=== PATIENT | female | born 1945 | race Caucasian/White ===

== ENCOUNTER 2018-02-18 10:00 | Observation (INO) | payer MEDICARE, BC ==
[2018-02-18] MEDS ORDERED: Morphine 4 MG/ML VIAL ONE (10:55)
[2018-02-18] MEDS ORDERED: Ketorolac Tromethamine 30 MG/ML VIAL ONE (10:56)
[2018-02-18 11:10] LABS: #Eosinphils 0.2 thou/uL (0.0-0.7); #Lymphocytes 0.8 thou/uL (1.20-3.40); #Monocytes 0.6 thou/uL (0.11-0.59); #Neutrophils 6.5 thou/uL (1.40-6.50); %Basophils 0.4 % (0.0-1.0); %Eosinophils 1.8 % (0.0-10.0); %Lymphocytes 10.3 % (21.0-51.0); %Monocytes 7.8 % (0.0-10.0); %Neutrophils 79.6 % (42.0-75.0); Hemoglobin 14.3 g/dL (12.0-16.0); Mean Corpuscular HGB CONC 32.9 g/dL (32.0-36.0); Mean Corpuscular Hemoglobin 33.5 pg (27.0-31.0); Mean Platelet Volume 6.5 fL (7.4-10.4); Platelet Count 313 thou/uL (130-400); RBC Distribution Width 11.7 % (11.5-14.5); Red Blood Cell (RBC) Count 4.28 mill/uL (4.20-5.40); White Blood Cell (WBC) Count 8.1 thou/uL (4.8-10.8)
[2018-02-18 11:27] LABS: ALT (SGPT) 10 U/L (8-55); AST (SGOT) 29 U/L (5-34); Alkaline Phosphatase 88 U/L (40-150); Anion Gap 11 mmol/L (10-20); BUN (Urea Nitrogen) 14 mg/dL (9.8-20.1); Bilirubin, Total 0.7 mg/dL (0.2-1.2); Calc. Creatinine Clearance 0 mL/min (70-130); Calcium 9.4 mg/dL (7.8-10.44); Carbon Dioxide 29 mmol/L (23-31); Chloride 99 mmol/L (98-107); Estimated GFR-MDRD 80; Globulin 2.6 g/dL (2.4-3.5); Glucose 99 mg/dL (83-110); Potassium 4.4 mmol/L (3.5-5.1); Protein, Total 6.6 g/dL (6.0-8.3); Sodium 135 mmol/L (136-145)
[2018-02-18] MEDS ORDERED: Dextrose 50% Abboject 50 ML SYRINGE SLOW IVP PRN (13:00)
[2018-02-18] MEDS ORDERED: Rib Fracture Protocol PO SCH (13:00)
[2018-02-18] MEDS ORDERED: Ondansetron ODT 4 MG TAB PO PRN (13:00)
[2018-02-18] MEDS ORDERED: Dextrose 5% in Water 1,000 ML IV PRN (13:00)
[2018-02-18] MEDS ORDERED: Ondansetron HCl/PF 4 MG/2 ML Vial IVP PRN (13:00)
[2018-02-18] MEDS ORDERED: ISOVUE-370 76%-LOCM 1 ML ONE (13:24)
--- NOTE | 2018-02-18 13:24 | CT ---
CHEST CT WITH CONTRAST ABDOMEN CT WITH CONTRAST PELVIC CT WITH CONTRAST LIMITED CT OF THE THORACIC AND LUMBAR SPINE: HISTORY: Fall. Right rib fractures. Worsening pain. TECHNIQUE: A chest, abdomen, and pelvic CT is performed with IV contrast. Reformatted images are submitted for interpretation. Limited CT of the thoracic and lumbar spine is performed with reformatted images. FINDINGS: CHEST CT: Coronary calcifications. No mediastinal mass, lymphadenopathy, or hematoma. Atherosclerosis of the aorta is noted. There is elongation of the descending thoracic aorta. No aneurysm, dissection, or p eriaortic fat stranding. Trachea and central bronchi are patent. Small right-sided pleural effusion. Atelectatic changes in both lower lobes are noted. No significant pleural effusion. ABDOMEN CT: A small amount of nonspecific perihepatic fluid. Appropriate enhancement of the liver. Spleen, panc reas, and adrenal glands have appropriate enhancement. Gallbladder is distended without evidence of cholecystitis. Mild dilatation of the intrahepatic bili sobeida system is noted. No CT evidence of choledocholithiasis. No gastrohepatic, retrocrural, or periportal lymphadenopathy. Symmetric enhancement of the kidneys. Bilaterally, no obstructive uropathy. No mesenteric mass, lymphadenopathy, free air, or free fluid. Limited evaluation of the alimentary canal due to the absence of oral contrast. No evidence of bowel obstruction. Bariatric surgical changes are noted. PELVIC CT: No mass, lymphadenopathy, free air, or free fluid. Uterus and adnexal structures are unremarkable. The urinary bladder is unremarkable. There are fractures involving the right 8th, 9th, 10th ribs. Left bony thorax is unremarkable. The bony pelvis is intact. Postsurgical changes in the lower lumbar spine and sacrum are noted. CT OF THE THORACIC AND LUMBAR SPINE: Vertebral body height is maintained. No acute fracture. Previous vertebroplasty change at T12. The re is anterolisthesis of L4 upon L5 and L1 upon S1. IMPRESSION: 1. Right rib fractures. 2. Small right-sided pneumothorax. 3. Small amount of perihepatic fluid without evidence of liver injury. 4. Distended gallbladder without evidence of cholecystitis. Prominence of the intra- and extrahepat ic biliary system without evidence of choledocholithiasis. Results of the study were discussed with Dr. Tucker 02/18/18 at 12:11 p.m. CODE CR POS: [facility]
[2018-02-18] MEDS ORDERED: Melatonin 3 MG TAB PO PRN (13:45)
[2018-02-18] MEDS ORDERED: Cyclobenzaprine 10 MG TAB PO PRN (15:00)
--- NOTE | 2018-02-18 15:08 | RAD ---
CHEST 1 VIEW: History Rib fractures. Pneumothorax. Pain. COMPARISON: 10/20/17, 02/17/18. FINDINGS: Right-sided rib fractures are noted. Small right-sided pneumothorax is noted. Chronic changes in th e left lung. Stable cardiac silhouette and elongation of the aorta. IMPRESSION: Posttraumatic change of the right hemithorax as described above. POS: [facility]
[2018-02-18] MEDS: Gabapentin 100 MG CAP PO SCH ×2 (15:10→20:44)
[2018-02-18] MEDS ORDERED: Ibuprofen 600 MG TAB PO SCH (15:30)
[2018-02-18] MEDS: Acetaminophen 500 MG TAB PO SCH ×2 (15:51→20:59)
[2018-02-18] MEDS: traMADol HCl 50 MG TAB PO SCH ×2 (15:52→20:59)
[2018-02-18 16:40] VITALS: BMI 22.8
[2018-02-18] MEDS ORDERED: Acetaminophen 500 MG TAB PO SCH (18:00)
[2018-02-18] MEDS ORDERED: traMADol HCl 50 MG TAB PO SCH (18:00)
--- NOTE | 2018-02-18 20:01 | HP ---
DATE OF ADMISSION: 02/18/2018 ATTENDING PHYSICIAN: Dr. Pedraza. TRAUMA ACTIVATION: Not applicable. HISTORY OF PRESENT ILLNESS: Lena Maria is a 72-year-old female who presented to [facility] 2 days status post fall. 2 nights ago the patient was attempting to stand after using the bathroom, her leg became caught in her pantleg and she fell striking her bathtub. She denies LOC or head trauma. The patient was evaluated in [facility] yesterday and diagnosed with rib fractures. She was discharged home at that time; however, the patient had increasing pain and presented to [facility] for further evaluation. A CT of the chest, abdomen, and pelvis was performed which demonstrated a small right pneumothorax and multiple right-sided rib fractures, as well as some fluid surrounding the liver but no definitive evidence of liver laceration. Trauma services was asked to admit for observation and pain control. Upon my evaluation, the patient had a chief complaint of right mid back and side pain. This is worsened with inspiration and movement, relieved with pain medication. ALLERGIES: None. HOME MEDICATIONS: Cymbalta 30 mg p.o. daily, Prilosec OTC, folic acid supplement, B12 supplement, multivitamin, Ambien 12.5 mg p.o. at bedtime, clonazepam 0.5 mg p.o. at bedtime. PAST MEDICAL HISTORY: Significant for indigestion, obesity status post gastric bypass and chronic back pain. PAST SURGICAL HISTORY: Significant for gastric bypass, back surgery and neck surgery, left wrist and left humerus surgery. SOCIAL HISTORY: The patient lives at home independently. She endorses occasional alcohol use defined is 1-2 drinks every other week. She is a previous tobacco user 50 years, half pack per day, but quit 1.5 years ago. Denies illicit drug use. REVIEW OF SYSTEMS: Negative except as indicated in the HPI. PHYSICAL EXAMINATION: VITAL SIGNS: Temperature on arrival 98.5, pulse 72, blood pressure 125/75, O2 sat 100% on 2 liters nasal cannula, respiratory rate of 16. GENERAL: Well-developed elderly female, sitting in bed, in no acute distress. HEAD: Normocephalic. She does have a chin contusion. EYES: Pupils are PERRL. Extraocular movements are intact. NECK: Supple. Trachea is midline. There is no midline tenderness to palpation. PULMONARY: No tenderness to palpation anteriorly. Normal work of breathing, symmetric rise. LUNGS: Clear to auscultation bilaterally. CARDIOVASCULAR: Regular rate and rhythm. GASTROINTESTINAL: Abdomen is soft, nontender, nondistended. Bowel sounds are positive. BACK: No midline tenderness, but she does have right mid back pain with palpation. MUSCULOSKELETAL: Bilateral upper extremities within normal limits. Bilateral lower extremities within normal limits. NEUROLOGIC: GCS of 15. No focal deficit noted. LABORATORY FINDINGS: WBC 8.1, hemoglobin 14.3, hematocrit 43.5, platelet count 313. Sodium 135, potassium 4.4, chloride 99, carbon dioxide 29, BUN 14, creatinine 0.72, glucose 99. AST and ALT within normal limits. RADIOLOGIC FINDINGS: CT of the chest, abdomen, and pelvis, right 8th through 10th rib fractures with a small right-sided pneumothorax evidence of a small amount of perihepatic fluid without obvious liver injury. Incidental finding of distended gallbladder, but no evidence of cholecystitis. Chest x-ray, small apical right-sided pneumothorax is noted with right-sided rib fractures. ASSESSMENT: 1. Status post mechanical fall. 2. Right 8th through 10th rib fractures. 3. Small right pneumothorax. 4. Acute traumatic pain. PLAN: Admit to trauma services for pain control and observation. Pain control with rib fracture protocol via p.o. pathway. Incentive spirometry and pulmonary toileting. Repeat chest x-ray in a.m. A.m. CBC. Plan for admission were discussed with the patient and daughter at bedside who vocalized understanding. All questions were answered at the time of this dictation. The patient was discussed with Dr. Pedraza, who agrees with my assessment and plan. [facility]ITAL[facility]
[2018-02-18] MEDS: Famotidine 20 MG TAB PO SCH (20:44)
[2018-02-18] MEDS: Ibuprofen 600 MG TAB PO SCH (20:59)
[2018-02-19] MEDS: Ibuprofen 600 MG TAB PO SCH ×2 (04:47→13:08)
[2018-02-19] MEDS: Acetaminophen 500 MG TAB PO SCH ×2 (04:47→10:28)
[2018-02-19] MEDS: traMADol HCl 50 MG TAB PO SCH ×2 (04:47→10:29)
[2018-02-19 06:02] LABS: #Eosinphils 0.1 thou/uL (0.0-0.7); #Lymphocytes 0.9 thou/uL (1.20-3.40); #Monocytes 0.5 thou/uL (0.11-0.59); #Neutrophils 2.5 thou/uL (1.40-6.50); %Eosinophils 3.6 % (0.0-10.0); %Lymphocytes 22.9 % (21.0-51.0); %Monocytes 11.5 % (0.0-10.0); Hemoglobin 11.9 g/dL (12.0-16.0); Mean Corpuscular HGB CONC 33.3 g/dL (32.0-36.0); Mean Corpuscular Hemoglobin 34.5 pg (27.0-31.0); Platelet Count 221 thou/uL (130-400); RBC Distribution Width 11.7 % (11.5-14.5); Red Blood Cell (RBC) Count 3.47 mill/uL (4.20-5.40); White Blood Cell (WBC) Count 4.1 thou/uL (4.8-10.8)
[2018-02-19] MEDS: Gabapentin 100 MG CAP PO SCH ×2 (09:12→13:08)
[2018-02-19] MEDS: Famotidine 20 MG TAB PO SCH (09:12)
--- NOTE | 2018-02-19 12:19 | RAD ---
PORTABLE AP CHEST XRAY: DATE: 02/19/18. HISTORY: Pneumothorax, rib fracture. COMPARISON: 02/18/18. FINDINGS: Postsurgical changes of the lower cervical spine as well as left humerus are again present. Right-sided rib fractures are again seen. No pneumothorax or pleural effusion is seen on this exam. There is atelectasis at the left lung base. Lungs are otherwise clear. Cardiac silhouette is magni fied by projection. Thoracic aorta is tortuous and ectatic but unchanged in appearance. Vertebropla sty changes are seen involving lower thoracic/upper lumbar vertebral bodies. Osteopenia is present. IMPRESSION: 1. Right-sided rib fractures are again present. A definite right-sided pneumothorax is not apprecia cody on this exam. 2. Atelectasis left lung base. POS: [facility]
[2018-02-19 13:07] VITALS: BP 113/72; TEMP 98.1
--- NOTE | 2018-02-20 00:08 | DIS ---
DATE OF ADMISSION: 02/18/2018 DATE OF DISCHARGE: 02/19/2018 ADMISSION DIAGNOSES: 1. Status post mechanical fall. 2. Right 8th through 10th rib fractures. 3. Small right pneumothorax. 4. Acute traumatic pain. DISCHARGE DIAGNOSES: 1. Status post mechanical fall. 2. Right 8th through 10th rib fractures. 3. Small right pneumothorax. 4. Acute traumatic pain. CONSULTANTS: None. PROCEDURES: None. HOSPITAL COURSE: Lena Maria is a 72-year-old female who presented to [facility] 2 days s tatus post mechanical fall in her bathroom. The patient was evaluated in the day prior to admission at an outside facility and found to have rib fractures for which she was prescribed pain medication; however, she had increasing pain and presented to [facility] for further evaluation. She was foun d to have multiple right-sided rib fractures with a small apical pneumothorax at which time, [facility] was asked to admit for observation and pain control. She was started on rib fracture protoco l via p.o. pathway and a repeat chest x-ray on the morning after admission showed improvement in the size of her pneumothorax. The patient was medically stable and cleared for discharge 02/19/2018. He r pain was controlled with p.o. analgesics. She was tolerating a general diet. She was ambulating w ell. DISCHARGE DISPOSITION: Home. DISCHARGE CONDITION: Good. PHYSICAL EXAMINATION: VITAL SIGNS: Temperature 98.1, pulse 74, respirations 16, O2 sat 96% on room air, blood pressure 113 /72. GENERAL: A well-developed elderly female in no acute distress, sitting in bed. PULMONARY: Normal work of breathing, symmetric rise. LUNGS: Clear to auscultation bilaterally. IS 1700 mL. CARDIOVASCULAR: Regular rate and rhythm. GI: Abdomen is soft, nontender, nondistended. MUSCULOSKELETAL: Moves all extremities x4. NEUROLOGIC: No focal deficit noted. DISCHARGE INSTRUCTIONS: Discharge instructions were provided to the patient and her family who vocal ized her understanding. She is to continue to use her incentive spirometer at home. She is encourag ed to maintain activity as tolerated. She has no dietary restrictions. She is return to the emergen cy room should she develop increasing shortness of breath, uncontrolled pain or dyspnea. DISCHARGE MEDICATIONS: The patient was discharged on [id number] Tylenol and ibuprofen with the addition of Ultram 50-100 mg q.6 hours p.r.n. for severe breakthrough pain, #40; Flexeril 5 mg 1 tab let p.o. q.8 hours p.r.n. for muscle spasm; gabapentin 100 mg t.i.d. She may resume her home medicat ions, but was advised to hold her Ambien given other sedating medications that we prescribed. FOLLOWUP APPOINTMENTS: The patient should follow up with her primary care provider as needed. She i s to follow up with Trauma Services in 2 weeks with a chest x-ray prior to her appointment. This is merely a summary of the patient's hospitalization for more in depth information, please see her medic al record in its entirety.
== END 2018-02-19 14:34 | disposition home or self-care (01) ==
LOC: ERS 10:00 → SURG A 12:21
PROVIDERS: ADMIT Specialist; ATTEND Specialist
DX: J98.11 Atelectasis (principal); Z79.899 Other long term (current) drug therapy
CPT/HCPCS: 71045 ×2; 71260; 74177; 80053; 85025 ×2; 94640 ×2; 96361; 96374; 96375; 97139; 99285; G0378; 36415; J1885; J2270; J7620

== ENCOUNTER 2018-03-07 13:32 | Outpatient (CLI) | payer MEDICARE, BC ==
--- NOTE | 2018-03-07 15:24 | RAD ---
PA AND LATERAL VIEWS CHEST: Date: 03/07/18 HISTORY: Pneumothorax, rib fractures. FINDINGS: Comparison made with exam of 02/19/18. Right-sided rib fractures are again seen. The heart size is normal and the aorta is tortuous. The joe gs are well expanded without lobar consolidation, pneumothoraces, or pleural effusions. There are pos top changes and metallic hardware in the lower cervical spine. IMPRESSION: 1. No definite evidence of pneumothorax. 2. Right-sided rib fractures. POS: [facility]
== END 2018-03-07 13:33 | disposition home or self-care (01) ==
LOC: RAD 13:32
PROVIDERS: ATTEND Physician Assistant
DX: S22.41XA Multiple fractures of ribs, right side, initial encounter for closed fracture (principal); S27.0XXA Traumatic pneumothorax, initial encounter
CPT/HCPCS: 71046

== ENCOUNTER 2018-10-26 06:40 | Outpatient (CLI) | payer MEDICARE, BC ==
--- NOTE | 2018-10-27 21:02 | EKG ---
Test Reason : Blood Pressure : / mmHG Vent. Rate : 059 BPM Atrial Rate : 058 BPM P-R Int : 148 ms QRS Dur : 090 ms QT Int : 434 ms P-R-T Axes : 052 -25 040 degrees QTc Int : 429 ms Sinus bradycardia Otherwise normal ECG When compared with ECG of 14-MAR-2015 11:33, Abberant conduction is no longer Present Confirmed by Vick RIVERA ([id number]) on 10/27/2018 9:02:35 PM Referred By: RYNE Confirmed By:Vick RIVERA
== END 2018-10-26 06:41 | disposition home or self-care (01) ==
LOC: LABBT 06:40
PROVIDERS: ATTEND Orthopaedic Surgery
DX: Z01.818 Encounter for other preprocedural examination (principal); M16.11 Unilateral primary osteoarthritis, right hip
CPT/HCPCS: 87081; 93005; 93010

== ENCOUNTER 2018-10-26 12:00 | Inpatient (IN) | payer MEDICARE, BC ==
[2018-10-26 12:52] VITALS: BMI 20.9
[2018-11-07] MEDS ORDERED: Midazolam HCl 2 mg/2 ml Vial ONE (06:21)
[2018-11-07] MEDS ORDERED: Fentanyl 100 MCG/2 ML VIAL ONE ×2 (06:21→07:13)
[2018-11-07] MEDS ORDERED: Lidocaine 1.5% w/Epi 1:200K 30 ML VIAL (Epid Use) ONE (06:48)
[2018-11-07] MEDS ORDERED: Sodium Chloride 0.9% 100 ML ONE (07:04)
[2018-11-07] MEDS ORDERED: Tranexamic Acid 1,000 MG/10 ML VIAL ONE (07:04)
[2018-11-07] MEDS ORDERED: CEFAZOLIN 2 GM/50 ML BAG ONE (07:04)
[2018-11-07] MEDS ORDERED: Lidocaine 2% Jelly 5 ML TUBE ONE (07:13)
[2018-11-07] MEDS ORDERED: Phenylephrine HCL 10 MG/ML VIAL ONE (07:13)
[2018-11-07] MEDS ORDERED: Ropivacaine 0.2% HCl/PF 20 ML ONE (07:13)
[2018-11-07] MEDS ORDERED: Ondansetron HCl/PF 4 MG/2 ML Vial IVP PRN (09:06)
[2018-11-07] MEDS ORDERED: Promethazine HCl 25 MG/ML VIAL SLOW IVP PRN (09:06)
[2018-11-07] MEDS ORDERED: Promethazine HCl 25 MG/ML VIAL IM PRN ×3 (09:06→10:52)
[2018-11-07] MEDS ORDERED: Promethazine HCl 25 MG SUPP PR PRN (09:15)
[2018-11-07] MEDS ORDERED: diphenhydrAMINE 50 MG/ML VIAL IVP PRN (09:15)
[2018-11-07] MEDS ORDERED: Ondansetron PF 4 MG/2 ML Vial IVP PRN ×2 (09:15→10:52)
[2018-11-07] MEDS ORDERED: Naloxone HCl 0.4 mg/ml Vial IV PRN (09:15)
[2018-11-07] MEDS ORDERED: diphenhydrAMINE 50 MG/ML VIAL IM PRN (09:15)
[2018-11-07] MEDS ORDERED: Hydrocerin (Eucerin) Cream 120 gm Jar TOP PRN (09:15)
[2018-11-07] MEDS ORDERED: traMADol HCl 50 MG TAB PO PRN ×3 (09:15→10:52)
[2018-11-07] MEDS ORDERED: Naloxone HCl 0.4 mg/ml Vial IVP PRN (09:15)
[2018-11-07] MEDS ORDERED: Bupivacaine 0.25% 10 ML VIAL EPIDURAL PRN (09:15)
[2018-11-07] MEDS ORDERED: diphenhydrAMINE 25 MG CAP PO PRN ×2 (09:15→10:52)
[2018-11-07] MEDS ORDERED: HYDROcodone/Acetaminophen 5/325 mg Tablet PO PRN ×2 (09:15)
--- NOTE | 2018-11-07 10:20 | HP ---
CHIEF COMPLAINT: Right hip pain. HISTORY OF PRESENT ILLNESS: Ms. Maria is a pleasant 73-year-old female, presenting with right hip pain for several years, severe over the last 2 or 3 months, increased walking for long periods, sharp pain, it can be size 5 to 10 of 10. The patient's pain is controlled with Tylenol. History of lumbar and cervical fusion, bariatric surgery, occasionally numbness in her right foot. No recent cardiac complications. She has been cleared by Dr. Mares, low risk. Denies previous surgeries to her hip. The patient lives by herself at home alone. PAST MEDICAL HISTORY: Osteoporosis; obstructive sleep apnea, on CPAP; depression, anxiety; insomnia; heavy alcohol in the past; thrombotic CVA; diastolic dysfunction; chronic low back pain, history of multiple surgeries; gastric bypass; and constipation. PAST SURGICAL HISTORY: Heart catheterization, low back fusion, cervical fusion, left wrist fracture, gastric bypass, humerus fracture repair. MEDICATIONS: 1. Hydrocortisone. 2. Prilosec. 3. Ergocalciferol. 4. Sennosides. 5. Vitamin B12. 6. Cymbalta. 7. Hydroxyzine. ALLERGIES: TO FOSAMAX, DICLOFENAC. SOCIAL HISTORY: The patient is a former smoker. The patient has history of heavy drinking. The patient is living alone currently at home. . 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 PHYSICAL EXAMINATION: GENERAL: Alert and oriented female, in no acute distress. Resting comfortably in bed. EXTREMITIES: The patient has 1 to 1.5 cm shortening on the right side. She has groin pain with internal rotation. Gait is antalgic. The patient has sensory and motor intact distally. The patient is able to do a straight leg, which is negative. IMAGING DATA: Right hip films show transverse narrowing with marginal osteophytes consistent with right hip osteoarthritis. ASSESSMENT: 1. Right hip osteoarthritis. 2. History of lumbar fusion. 3. History of low back pain. 4. History of gastric sleeve PLAN: I discussed with the patient the risks and benefits of a right hip arthroplasty. The patient understands that she has increased risk of complications for bariatric surgery. I discussed the risks and benefits of the surgery to include pain, scar, bleeding, infection, damage to vital structures, decreased range of motion and strength, nonunion, malunion, re-fracture, risk of blood clots, complication, anesthesia, complete loss of life or limb. The patient understands the risks and benefits and elects to proceed. We will proceed today with a right total hip arthroplasty. The patient will receive vancomycin and Ancef preoperatively as well as TXA per the [facility] protocol. She will be followed in-house. Job ID: [id number] MTDD
[2018-11-07] MEDS ORDERED: Acetaminophen 1,000 MG in Premix Bag 1 BAG IVPB PRN (10:22)
[2018-11-07 10:38] LABS: RBC/HPF 21-50 HPF (0-3); WBC/HPF 0-3 HPF (0-3)
[2018-11-07 10:39] LABS: Bacteria/HPF Rare-Few HPF (None Seen)
--- NOTE | 2018-11-07 10:50 | RAD ---
AP PELVIS TWO VIEWS RIGHT HIP: Date: 11-07-18 History: Post-operative total hip replacement. Comparison: 11-14-13 FINDINGS: There have been interval post-surgical changes related to placement of a right total hip prosthesis. No hardware complication is appreciated. No fracture or dislocation is identified. Post-surgical guidry ges are again seen related to posterior fusion at the lumbosacral junction with unilateral right side d pedicular screws transfixed by posterior lasha. Intradiscal prosthesis also overlies this region. There is mild bilateral sacroiliac joint osteoarthritis with degenerative change of the pubic symphys is. There is mild left hip joint space narrowing. No other osseous abnormality. Phleboliths overly th e pelvis. Vascular calcifications seen in the visualized infrarenal abdominal aorta involving the kar ac arteries. IMPRESSION: Post-surgical changes related to right total hip prosthesis with subcutaneous edema seen laterally an d about the right hip, related to recent post-surgical change. POS: [facility]
[2018-11-07] MEDS ORDERED: Acetaminophen 325 MG TAB PO PRN (10:52)
[2018-11-07] MEDS ORDERED: Ketorolac Tromethamine 30 MG/ML VIAL IVP PRN (10:52)
[2018-11-07] MEDS ORDERED: Fentanyl 100 MCG/2 ML VIAL SLOW IVP PRN ×2 (10:52)
[2018-11-07] MEDS ORDERED: Zolpidem Tartrate 5 MG TAB PO PRN (10:52)
[2018-11-07] MEDS ORDERED: CEFAZOLIN/Water 2 GM/20 ML SYRINGE SLOW IVP SCH (10:52)
[2018-11-07] MEDS ORDERED: Vancomycin HCl 1 GM in Premix Bag 1 BAG IVPB SCH ×2 (10:52→20:00)
[2018-11-07 11:09] LABS: Crystals/HPF 4+ ACID URATES HPF (Negative); Hyaline Casts/LPF 0-3 HYALINE CAST LPF (0-3 Hyaline)
--- NOTE | 2018-11-07 13:49 | PDOC.PN ---
- Subjective Encounter Start Date: 11/07/18 Encounter Start Time: 13:47 Pt seen for management of medical comorbidities including OSAS. Denies chest pain, shortness of breath, fevers or chills. - Objective MAR Reviewed: Yes Vital Signs & Weight: Vital Signs (12 hours) Temp Pulse Resp BP Pulse Ox 11/07/18 13:26 100 11/07/18 11:45 98.8 F 64 18 112/74 100 Weight Weight 142 lb I&O: 11/06/18 11/07/18 11/08/18 06:59 06:59 06:59 Intake Total 750 Output Total 250 Balance 500 Additional Labs: Labs reviewed by me Phys Exam - Physical Examination Constitutional: NAD HEENT: moist MMs Neck: supple Respiratory: clear to auscultation bilateral Cardiovascular: RRR Gastrointestinal: soft Neurological: moves all 4 limbs Psychiatric: normal affect Dx/Plan (1) KEELY (obstructive sleep apnea) Code(s): G47.33 - OBSTRUCTIVE SLEEP APNEA (ADULT) (PEDIATRIC) Status: Chronic Comment: to use CPAP while asleep (2) Mild depression Code(s): F32.0 - MAJOR DEPRESSIVE DISORDER, SINGLE EPISODE, MILD Status: Chronic Comment: stable (3) Osteoporosis Code(s): M81.0 - AGE-RELATED OSTEOPOROSIS W/O CURRENT PATHOLOGICAL FRACTURE Status: Chronic Comment: stable (4) H/O: CVA (cerebrovascular accident) Code(s): Z86.73 - PRSNL HX OF TIA (TIA), AND CEREB INFRC W/O RESID DEFICITS Status: Chronic Comment: advised pt to followup with PCP and discuss need for aspirin and statin. - Plan * . Review of Systems - Review of Systems Cardiovascular: negative: chest pain, palpitations, orthopnea, paroxysmal nocturnal dyspnea, edema, light headedness Gastrointestinal: negative: Nausea, Vomiting, Abdominal Pain, Diarrhea, Constipation, Melena, Hematochezia - Medications/Allergies Allergies/Adverse Reactions: Allergies Allergy/AdvReac Type Severity Reaction Status Date / Time alendronate sodium Allergy Verified 11/07/18 10:58 [From Fosamax] diclofenac Allergy Verified 11/07/18 10:58 Medications: Current Medications Acetaminophen (Tylenol) 650 mg PO Q4H PRN PRN Reason: Headache/Fever or Pain Hydrocodone Bitart/Acetaminophen ([place] 5/325) 1 tab PO Q4H PRN PRN Reason: Mild Pain 0-3 Hydrocodone Bitart/Acetaminophen ([place] 5/325) 2 tab PO Q4H PRN PRN Reason: For Moderate Pain 4-6 Aspirin (Ecotrin) 81 mg PO BID [facility] Bupivacaine HCl (Marcaine) 5 ml EPIDURAL ONE PRN PRN Reason: UNCONTROLLED PAIN Stop: 11/08/18 09:16 Diphenhydramine HCl (Benadryl) 25 mg PO Q3H PRN PRN Reason: Itching Diphenhydramine HCl (Benadryl) 25 mg IM Q3H PRN PRN Reason: Itching Diphenhydramine HCl (Benadryl) 25 mg IVP Q3H PRN PRN Reason: Itching Emollient Cream (Hydrocerin Cream) 0 gm TOP PRN PRN PRN Reason: Itching Fentanyl (Sublimaze) 50 mcg SLOW IVP Q30MIN PRN PRN Reason: Moderate Pain (4-6) Fentanyl (Sublimaze) 100 mcg SLOW IVP Q1H PRN PRN Reason: Severe Pain (7-10) Ferrous Gluconate (Fergon) 324 mg PO BID [facility] Fentanyl Citrate (Fentanyl/Bupivacaine) 100 mls @ 6 mls/hr EPIDURAL INF EL Acetaminophen 1,000 mg/ Device 100 mls @ 400 mls/hr IVPB Q6H PRN PRN Reason: Fever>101/MILD Pain Stop: 11/08/18 10:23 Dextrose/Sodium Chloride (D5 1/2 Ns) 1,000 mls @ 100 mls/hr IV .Q10H EL Cefazolin Sodium/Dextrose 2 gm (/ Device) 50 mls @ 50 mls/hr IVPB Q8H EL Stop: 11/07/18 23:59 Iron/Minerals/Multivitamins (Theragran M) 1 tab PO DAILY [facility] Ketorolac Tromethamine (Toradol) 15 mg IVP Q8HR PRN PRN Reason: Pain Stop: 11/09/18 10:53 Miscellaneous Information (Communication Order-Pharmacy) 1 each FS ASDIR EL Naloxone HCl (Narcan) 0.2 mg IV Q5MIN PRN PRN Reason: RR <=8 OR OBTUNDED/UNAROUSABLE Naloxone HCl (Narcan) 0.1 mg IVP Q15MIN PRN PRN Reason: URINARY RETENTION Ondansetron HCl (Zofran) 4 mg IVP Q6H PRN PRN Reason: Nausea/Vomiting Promethazine HCl (Phenergan) 12.5 mg IM Q4H PRN PRN Reason: Nausea Promethazine HCl (Phenergan Suppository) 25 mg DC Q4H PRN PRN Reason: Nausea/Vomiting Senna/Docusate Sodium (Senokot S) 2 tab PO BID EL Sodium Chloride (Flush - Normal Saline) 10 ml IVF PRN PRN PRN Reason: Saline Flush Tramadol HCl (Ultram) 50 mg PO Q6H PRN PRN Reason: Mild Pain 1-3 Tramadol HCl (Ultram) 100 mg PO Q6H PRN PRN Reason: Moderate Pain 4-6 Zolpidem Tartrate (Ambien) 5 mg PO HSPRN PRN PRN Reason: Insomnia
[2018-11-07] MEDS: Dextrose 5 %-0.45 % NaCl 1,000 ML IV SCH ×2 (14:38→20:22)
[2018-11-07] MEDS: CEFAZOLIN 2 GM/50 ML-DEXTROSE 2 GM in Premix Bag 1 BAG IVPB SCH ×2 (15:51→22:13)
[2018-11-07] MEDS ORDERED: Rocuronium Bromide 10 MG/ML (10ML VIAL) ONE (16:25)
[2018-11-07] MEDS ORDERED: PHENYLEPHRINE-NS 100 MCG/ML 10 ML SYRINGE ONE (16:25)
[2018-11-07] MEDS ORDERED: Glycopyrrolate 0.2 MG/ML 5 ML SYRINGE ONE (16:25)
[2018-11-07] MEDS ORDERED: Dexamethasone 20 MG/5 ML VIAL ONE (16:25)
[2018-11-07] MEDS ORDERED: PROPOFOL 200 MG/20 ML VIAL ONE (16:25)
[2018-11-07] MEDS ORDERED: Ondansetron PF 4 MG/2 ML Vial ONE (16:25)
[2018-11-07] MEDS ORDERED: ePHEDrine/0.9% NaCl/PF SYRINGE 50 mg/10 ml ONE (16:25)
[2018-11-07] MEDS: Aspirin 81 mg Enteric Coated Tablet PO SCH (20:22)
[2018-11-07] MEDS: Ferrous Gluconate 324 MG TAB PO SCH (20:22)
[2018-11-07] MEDS: Zolpidem Tartrate 5 MG TAB PO PRN (22:14)
[2018-11-08] MEDS: Fentanyl/Bupivacaine 100 ML EPIDURAL SCH ×2 (00:36→16:44)
[2018-11-08] MEDS: HYDROcodone/Acetaminophen 5/325 mg Tablet PO PRN ×4 (00:55→14:17)
--- NOTE | 2018-11-08 01:04 | OP ---
DATE OF PROCEDURE: 11/07/2018 PREOPERATIVE DIAGNOSIS: Right hip osteoarthritis. POSTOPERATIVE DIAGNOSIS: Right hip osteoarthritis. PROCEDURE PERFORMED: Right total hip arthroplasty. HEAD OPERATOR SULFIDE: Fabiano Stallings PA-C ANESTHESIOLOGIST: Dr. Madrigal. ANESTHESIA: The patient received a general endotracheal intubation with an epidural. ESTIMATED BLOOD LOSS: 150 mL. TOURNIQUET TIME: None. IMPLANTS: [place]ington Accolade 36-5 femoral head, Accolade 132, size 6 Accolade TMC stem, trident 10 mm, poly 36 mm, X3 10-degree poly insert and a Tritanium 58 mm shell. ANTIBIOTICS: Ancef 2 g, vancomycin 1 g, TXA 1 g. COMPLICATIONS: None. HISTORY OF PRESENT ILLNESS: Ms. Maria is a 73-year-old female with right hip pain, presents after increasing pain in her right hip. I discussed with the patient that she has right hip osteoarthritis. I discussed the risks and benefits of the surgery to include pain, scar, bleeding, infection, damage to vital structures, decreased range of motion or strength, nonunion, fracture above or below the stem, need for further surgeries, and loss of life or limb. The patient understood the risks and benefits. She would like to proceed. DESCRIPTION OF PROCEDURE: A time-out was performed designating the patient's right lower extremity as the operative site, based on site, consent, and markings. After time-out was performed, the patient's right lower extremity was prepped and draped in sterile fashion in lateral position with bony prominences well padded. The patient had a lateral incision down through skin to the IT band down. We found the gluteus medius and minimus, which were taken off in lateral approach to expose the capsule. The capsule was T'd and excised and exposed the acetabulum, reamed sequentially up to a 57 plate to 58 Tritanium shell with a 36 mm, 10-degree poly insert F poly. After removing this and placing the broach, we broached up to size 6, trialed with -5. She was tight just as her IT band was tethered around which made a small rent in the IT band to help with exposure that made her loose. We had good overall lengths and alignments based on leg lengths as well as reduction, she had no shuck, alignment. We then elected to complete with this implant. We removed all ours trial, washed the reminder of the hip. We placed the size 6, reduced the hip, had good overall reduction. No signs of impingement. We then closed the gluteus minimus with sutures, passing through the bone across the gluteus medius with sewing the tendon back to itself as well as closed some of the rectus that had been peeled off, closing the entire and then closed the IT band with #2 Vicryl, #2 Quill, 0 Quill, 2-0 Quill and glue. The patient will be admitted to the hospital. She may need rehab postoperatively. Follow in-house. Job ID: [id number]
[2018-11-08] MEDS: Dextrose 5 %-0.45 % NaCl 1,000 ML IV SCH ×2 (05:22→14:19)
[2018-11-08 06:19] LABS: Hemoglobin 10.9 g/dL (12.0-16.0); Mean Corpuscular HGB CONC 32.5 g/dL (32.0-36.0); Mean Platelet Volume 6.4 fL (7.4-10.4); Platelet Count 254 thou/uL (130-400); RBC Distribution Width 11.1 % (11.5-14.5); Red Blood Cell (RBC) Count 3.31 mill/uL (4.20-5.40); White Blood Cell (WBC) Count 6.8 thou/uL (4.8-10.8)
[2018-11-08] MEDS: Multivitamin W/ Minerals 1 TAB PO SCH (09:30)
[2018-11-08] MEDS: Aspirin 81 mg Enteric Coated Tablet PO SCH ×2 (09:30→21:07)
[2018-11-08] MEDS: Ferrous Gluconate 324 MG TAB PO SCH ×2 (09:30→21:07)
[2018-11-08] MEDS: Senokot S 8.6-50 MG TAB PO SCH ×2 (14:17→21:07)
--- NOTE | 2018-11-08 19:01 | PDOC.PN ---
- Subjective Encounter Start Date: 11/08/18 Encounter Start Time: 09:40 Pt seen for followup re: OSAS. No complaints today. - Objective MAR Reviewed: Yes Vital Signs & Weight: Vital Signs (12 hours) Temp Pulse Resp BP Pulse Ox 11/08/18 16:02 98.2 F 77 18 94/56 L 97 11/08/18 07:14 97.8 F 98 20 150/73 H 95 Weight Admit Weight 142 lb Weight 142 lb I&O: 11/07/18 11/08/18 11/09/18 06:59 06:59 06:59 Intake Total 750 2300 Output Total 450 1200 Balance 300 1100 Result Diagrams: 11/08/18 05:38 Additional Labs: Labs reviewed by me Phys Exam - Physical Examination Constitutional: NAD HEENT: moist MMs Neck: supple Respiratory: clear to auscultation bilateral Cardiovascular: RRR Gastrointestinal: soft s/p R hip surgery Neurological: moves all 4 limbs Dx/Plan (1) KEELY (obstructive sleep apnea) Code(s): G47.33 - OBSTRUCTIVE SLEEP APNEA (ADULT) (PEDIATRIC) Status: Chronic Comment: stable, using CPAP while asleep (2) Mild depression Code(s): F32.0 - MAJOR DEPRESSIVE DISORDER, SINGLE EPISODE, MILD Status: Chronic Comment: stable (3) Osteoporosis Code(s): M81.0 - AGE-RELATED OSTEOPOROSIS W/O CURRENT PATHOLOGICAL FRACTURE Status: Chronic Comment: stable (4) H/O: CVA (cerebrovascular accident) Code(s): Z86.73 - PRSNL HX OF TIA (TIA), AND CEREB INFRC W/O RESID DEFICITS Status: Chronic Comment: pt will benefit from aspirin and statin. - Plan * . Review of Systems - Review of Systems Constitutional: negative: fever, chills, sweats, weakness, malaise Gastrointestinal: negative: Nausea, Vomiting, Abdominal Pain, Diarrhea, Constipation, Melena, Hematochezia - Medications/Allergies Allergies/Adverse Reactions: Allergies Allergy/AdvReac Type Severity Reaction Status Date / Time alendronate sodium Allergy Verified 11/07/18 10:58 [From Fosamax] diclofenac Allergy Verified 11/07/18 10:58 Medications: Current Medications Acetaminophen (Tylenol) 650 mg PO Q4H PRN PRN Reason: Headache/Fever or Pain Hydrocodone Bitart/Acetaminophen ([place] 5/325) 1 tab PO Q4H PRN PRN Reason: Mild Pain 0-3 Last Admin: 11/08/18 06:07 Dose: 1 tab Hydrocodone Bitart/Acetaminophen ([place] 5/325) 2 tab PO Q4H PRN PRN Reason: For Moderate Pain 4-6 Last Admin: 11/08/18 14:17 Dose: 2 tab Aspirin (Ecotrin) 81 mg PO BID [facility] Last Admin: 11/08/18 09:30 Dose: 81 mg Diphenhydramine HCl (Benadryl) 25 mg PO Q3H PRN PRN Reason: Itching Diphenhydramine HCl (Benadryl) 25 mg IM Q3H PRN PRN Reason: Itching Diphenhydramine HCl (Benadryl) 25 mg IVP Q3H PRN PRN Reason: Itching Emollient Cream (Hydrocerin Cream) 0 gm TOP PRN PRN PRN Reason: Itching Fentanyl (Sublimaze) 50 mcg SLOW IVP Q30MIN PRN PRN Reason: Moderate Pain (4-6) Fentanyl (Sublimaze) 100 mcg SLOW IVP Q1H PRN PRN Reason: Severe Pain (7-10) Ferrous Gluconate (Fergon) 324 mg PO BID [facility] Last Admin: 11/08/18 09:30 Dose: 324 mg Fentanyl Citrate (Fentanyl/Bupivacaine) 100 mls @ 6 mls/hr EPIDURAL INF [facility] Last Admin: 11/08/18 16:44 Dose: 100 mls Dextrose/Sodium Chloride (D5 1/2 Ns) 1,000 mls @ 100 mls/hr IV .Q10H [facility] Last Admin: 11/08/18 14:19 Dose: Not Given Influenza Virus Vacc Triv Types A&B (Fluzone High-Dose 2017- Syr) 0.5 ml IM .ONCE ONE Stop: 11/08/18 21:01 Iron/Minerals/Multivitamins (Theragran M) 1 tab PO DAILY [facility] Last Admin: 11/08/18 09:30 Dose: 1 tab Ketorolac Tromethamine (Toradol) 15 mg IVP Q8HR PRN PRN Reason: Pain Stop: 11/09/18 10:53 Miscellaneous Information (Communication Order-Pharmacy) 1 each FS ASDIR [facility] Naloxone HCl (Narcan) 0.2 mg IV Q5MIN PRN PRN Reason: RR <=8 OR OBTUNDED/UNAROUSABLE Naloxone HCl (Narcan) 0.1 mg IVP Q15MIN PRN PRN Reason: URINARY RETENTION Ondansetron HCl (Zofran) 4 mg IVP Q6H PRN PRN Reason: Nausea/Vomiting Last Admin: 11/08/18 06:29 Dose: 4 mg Pneumococcal 13-Valent Conj Vacc (Prevnar) 0.5 ml IM .ONCE ONE Stop: 11/08/18 21:01 Promethazine HCl (Phenergan) 12.5 mg IM Q4H PRN PRN Reason: Nausea Promethazine HCl (Phenergan Suppository) 25 mg FL Q4H PRN PRN Reason: Nausea/Vomiting Senna/Docusate Sodium (Senokot S) 2 tab PO BID [facility] Last Admin: 11/08/18 14:17 Dose: 2 tab Sodium Chloride (Flush - Normal Saline) 10 ml IVF PRN PRN PRN Reason: Saline Flush Tramadol HCl (Ultram) 50 mg PO Q6H PRN PRN Reason: Mild Pain 1-3 Tramadol HCl (Ultram) 100 mg PO Q6H PRN PRN Reason: Moderate Pain 4-6 Zolpidem Tartrate (Ambien) 5 mg PO HSPRN PRN PRN Reason: Insomnia Last Admin: 11/07/18 22:14 Dose: 5 mg
[2018-11-08] MEDS ORDERED: Prevnar 13-Val Conj/PF 0.5 ML SYRINGE IM ONE (21:00)
[2018-11-08] MEDS: Zolpidem Tartrate 5 MG TAB PO PRN (21:10)
[2018-11-09] MEDS: Dextrose 5 %-0.45 % NaCl 1,000 ML IV SCH ×2 (03:58→11:12)
[2018-11-09 04:23] VITALS: TEMP 98.8
[2018-11-09] MEDS: HYDROcodone/Acetaminophen 5/325 mg Tablet PO PRN ×3 (06:19→16:12)
[2018-11-09 06:52] LABS: Hemoglobin 11.9 g/dL (12.0-16.0); Mean Corpuscular HGB CONC 31.7 g/dL (32.0-36.0); Mean Corpuscular Hemoglobin 33.2 pg (27.0-31.0); Mean Platelet Volume 6.7 fL (7.4-10.4); Platelet Count 245 thou/uL (130-400); RBC Distribution Width 11.2 % (11.5-14.5); Red Blood Cell (RBC) Count 3.59 mill/uL (4.20-5.40); White Blood Cell (WBC) Count 8.1 thou/uL (4.8-10.8)
[2018-11-09] MEDS: Senokot S 8.6-50 MG TAB PO SCH (09:32)
[2018-11-09] MEDS: Multivitamin W/ Minerals 1 TAB PO SCH (09:32)
[2018-11-09] MEDS: Ferrous Gluconate 324 MG TAB PO SCH (09:32)
[2018-11-09] MEDS: Aspirin 81 mg Enteric Coated Tablet PO SCH (09:32)
[2018-11-09] MEDS ORDERED: HYDROcodone/Acetaminophen 10/325 mg Tablet PO PRN ×2 (10:23)
[2018-11-09 11:40] VITALS: BP 108/54
--- NOTE | 2018-11-10 13:10 | DIS ---
DATE OF ADMISSION: 11/07/2018 DATE OF DISCHARGE: 11/09/2018 PREOPERATIVE DIAGNOSIS: Right hip osteoarthritis/degenerative joint disease. POSTOPERATIVE DIAGNOSIS: Right hip osteoarthritis/degenerative joint disease. PROCEDURE PERFORMED: The patient underwent a right total hip replacement. HOSPITAL COURSE: Hospital stay was unremarkable. The patient was admitted to [address], where she worked with staff, Physical Therapy, Occupational Therapy, and progressed quite well. By postop day #2, she was ready to discharge home. DISCHARGE CONDITION: Good/stable. DISPOSITION: Home with family. FOLLOWUP: Follow up would be in 2 to 4 weeks, sooner if there are problems or concerns. DISCHARGE MEDICATIONS: Given with the usage instructions. Job ID: [id number]
== END 2018-11-09 16:30 | disposition home or self-care (01) | DRG 470 ==
LOC: SURG A 11-07 06:03 → SJJU 11-07 10:39
PROVIDERS: ADMIT Orthopaedic Surgery; ATTEND Orthopaedic Surgery
PROC: 0SR90JA Replacement of Right Hip Joint with Synthetic Substitute, Uncemented, Open Approach (ICD-10-PCS; principal; 2018-11-07)
DX: M16.11 Unilateral primary osteoarthritis, right hip (principal); M81.0 Age-related osteoporosis without current pathological fracture; G47.33 Obstructive sleep apnea (adult) (pediatric); Z98.84 Bariatric surgery status; Z98.1 Arthrodesis status; F41.8 Other specified anxiety disorders; Z86.73 Personal history of transient ischemic attack (TIA), and cerebral infarction without residual deficits; Z87.891 Personal history of nicotine dependence
CPT/HCPCS: 36415; 81015; 85027; 90471; 90662; 90670; C1776; G0008; G0009; J1100; J2250; J2370; J2405; J2704; J2795; J3010; J3370; J7050

== ENCOUNTER 2018-11-01 12:35 | Outpatient (CLI) | payer MEDICARE, BC ==
[2018-11-01 13:38] LABS: Mean Corpuscular HGB CONC 32.1 g/dL (32.0-36.0); Mean Corpuscular Hemoglobin 32.3 pg (27.0-31.0); Mean Platelet Volume 6.6 fL (7.4-10.4); Platelet Count 366 thou/uL (130-400); RBC Distribution Width 11.1 % (11.5-14.5); Red Blood Cell (RBC) Count 4.33 mill/uL (4.20-5.40); White Blood Cell (WBC) Count 5.1 thou/uL (4.8-10.8)
[2018-11-01 13:39] LABS: Bilirubin Small (Negative); Blood, Urine Trace (Negative); Clarity CLEAR (Clear); Glucose, Urine (Dipstick) Negative (Negative); Leukocyte Trace (Negative); Nitrite Negative (Negative); Protein, Urine (Dipstick) Trace mg/dL (Neg-Trace); Specific Gravity, Urine 1.022 (1.002-1.036)
[2018-11-01 13:41] LABS: Bacteria/HPF None Seen HPF (None Seen); Hyaline Casts/LPF 7-10 HYALINE CAST LPF (0-3 Hyaline); Pathc Cast-AUWi Flag 1.45 (0-2.49)
[2018-11-01 13:42] LABS: INR-International Normal Ratio 1.2
[2018-11-01 14:01] LABS: Anion Gap 13 mmol/L (10-20); BUN (Urea Nitrogen) 13 mg/dL (9.8-20.1); Calc. Creatinine Clearance 0 mL/min (70-130); Carbon Dioxide 25 mmol/L (23-31); Chloride 105 mmol/L (98-107); Estimated GFR-MDRD 89; Glucose 90 mg/dL (83-110); Potassium 4.3 mmol/L (3.5-5.1); Sodium 139 mmol/L (136-145)
== END 2018-11-01 12:36 | disposition home or self-care (01) ==
LOC: LABBT 12:35
PROVIDERS: ATTEND Orthopaedic Surgery
DX: Z01.812 Encounter for preprocedural laboratory examination (principal); M16.11 Unilateral primary osteoarthritis, right hip
CPT/HCPCS: 80048; 81001; 85027; 85610; 86850; 86900; 86901

== ENCOUNTER 2019-05-15 15:12 | Outpatient (CLI) | payer MEDICARE, BC ==
--- NOTE | 2019-05-15 17:31 | RAD ---
LUMBAR SPINE 3 VIEWS: Date: 05/15/19 Lateral views obtained with neutral, flexion, and extension. INDICATION: Low back pain. Prior surgery. FINDINGS: Pedicle screws transfix L5 and S1. Interbody implant at this level. Partial fusion at L5-S1. Mild anterolisthesis at L4-5 with loss of L4-5 disc space. The vertebra maintain height. There is vertebroplasty change noted at the T12 vertebra with compressi on deformity at this vertebra. Lumbar vertebra maintain normal height. Facet hypertrophy is prominent . Mild osteophytes from the lumbar vertebra. Prominent aortic calcification. The listhesis at L4-5 ap pears to exacerbate with flexion and corrects with extension. IMPRESSION: Postoperative degenerative changes as described. POS: AISLINN
== END 2019-05-15 15:13 | disposition home or self-care (01) ==
LOC: TBSIIMAG 15:12
PROVIDERS: ATTEND Neurological Surgery
DX: M54.5 Low back pain (principal); M47.816 Spondylosis without myelopathy or radiculopathy, lumbar region; Z98.890 Other specified postprocedural states
CPT/HCPCS: 72100

== ENCOUNTER 2019-06-12 09:39 | Outpatient (CLI) | payer MEDICARE, BC ==
--- NOTE | 2019-06-12 10:08 | CT ---
CT LUMBAR SPINE: DATE: 06/12/2019. COMPARISON: CT of the chest, abdomen, and pelvis on 02/18/2018. HISTORY: Low back pain. TECHNIQUE: Axial CT imaging is obtained at 3 mm intervals through the lumbar spine with coronal and sagittal ref ormatted imaging. FINDINGS: Evaluation for central canal and/or neural foraminal stenosis is limited on routine CT. There is mult ifocal atherosclerotic calcification of the abdominal aorta and its branches, including the arterial structures of the pelvis. No acute retroperitoneal abnormality is seen. Degenerative changes noted involving bilateral sacroiliac joints. There is a right-sided L5 and right-sided S1 pedicle screw with an associated vertically oriented int erlocking lasha. There is mild anterolisthesis at L4-5 measuring approximately 4 mm and at L5-S1 measuring approximate ly 4 mm, stable when compared to the prior exam. There is a stable T12 fracture status post kyphoplasty. There is mild superior endplate irregularity suggesting prior fractures of L2, L3, and L4, stable. T12-L1: There is a focal hyperdensity within the region of the neural foramen on the left measuring 1 .2 cm with associated left-sided neural foraminal stenosis. This could be on the basis of a partially calcified disc extrusion. Further assessment with MRI advised with and without contrast. Th is likely causes significant left neural foraminal stenosis. No osseous cause of significant central canal or right neural foraminal stenosis. L1-2: Mild bilateral facet hypertrophy and anterior osteophyte formation with no osseous cause of sig nificant central canal or neural foraminal stenosis. L2-3: Mild bilateral facet hypertrophy and hypertrophy of the ligamentum flavum. Mild disc bulge. No osseous cause of significant central canal or neural foraminal stenosis. L3-4: Bilateral facet hypertrophy and hypertrophy of the ligamentum flavum. No osseous cause of signi ficant central canal or neural foraminal stenosis. L4-5: Bilateral facet hypertrophy with disc space narrowing and anterior osteophyte formation. Modera te left and mild right neural foraminal stenosis suspected. No osseous cause of significant central canal stenosis. L5-S1: Bilateral facet hypertrophy. Mild/moderate right neural foraminal stenosis. No central canal o r left neural foraminal stenosis on the basis of osseous abnormality. No acute fracture or evidence of dislocation. No worrisome lytic or blastic bone lesion. IMPRESSION: 1. Postoperative and degenerative changes within the lumbar spine as detailed above. 2. There is a focal hyperdense lesion within the region of the neural foramen on the left at T12-L1 which should be further assessed with MRI lumbar spine with and without contrast. CODE T Transcribed Date/Time: 06/12/2019 10:18 AM
== END 2019-06-12 09:40 | disposition home or self-care (01) ==
LOC: TBSIIMAG 09:39
PROVIDERS: ATTEND Neurological Surgery
DX: M54.5 Low back pain (principal); M47.816 Spondylosis without myelopathy or radiculopathy, lumbar region; G95.9 Disease of spinal cord, unspecified
CPT/HCPCS: 72131

== ENCOUNTER 2019-12-27 10:42 | Outpatient (CLI) | payer MEDICARE, BC ==
--- NOTE | 2019-12-27 12:05 | ULT ---
ULTRASOUND ABDOMEN: HISTORY: Right upper quadrant pain. FINDINGS: The liver, gallbladder, spleen, kidneys appear normal. The pancreas is not well visualized. The vis ualized portions of the aorta and IVC appear normal. No free fluid is seen. The common duct measure s 6 mm in diameter. IMPRESSION: No significant abnormalities are seen. POS: SJDI
== END 2019-12-27 10:43 | disposition home or self-care (01) ==
LOC: BICULT 10:42
PROVIDERS: ATTEND Nurse Practitioner
DX: R10.11 Right upper quadrant pain (principal); I71.4 Abdominal aortic aneurysm, without rupture
CPT/HCPCS: 93975

== ENCOUNTER 2020-03-06 15:31 | Inpatient (IN) | payer MEDICARE, BC ==
[2020-03-06 15:46] LABS: #Basophils 0.1 thou/uL (0.0-0.2); #Lymphocytes 2.3 thou/uL (1.20-3.40); #Monocytes 0.8 thou/uL (0.11-0.59); #Neutrophils 7.1 thou/uL (1.40-6.50); %Basophils 1.2 % (0.0-1.0); %Eosinophils 0.2 % (0.0-10.0); %Lymphocytes 22.6 % (21.0-51.0); %Monocytes 7.3 % (0.0-10.0); %Neutrophils 68.7 % (42.0-75.0); Hemoglobin 14.5 g/dL (12.0-16.0); Mean Corpuscular HGB CONC 31.5 g/dL (32.0-36.0); Mean Corpuscular Hemoglobin 32.3 pg (27.0-31.0); Mean Platelet Volume 6.5 fL (7.4-10.4); Platelet Count 401 thou/uL (130-400); RBC Distribution Width 11.1 % (11.5-14.5); White Blood Cell (WBC) Count 10.3 thou/uL (4.8-10.8)
[2020-03-06 16:08] LABS: ALT (SGPT) 15 U/L (8-55); AST (SGOT) 33 U/L (5-34); Albumin 2.4 g/dL (3.4-4.8); Alkaline Phosphatase 161 U/L (40-110); Anion Gap 14 mmol/L (10-20); BUN (Urea Nitrogen) 12 mg/dL (9.8-20.1); CK (CPK) 184 U/L (29-168); Calc. Creatinine Clearance 0 mL/min (70-130); Calcium 7.6 mg/dL (7.8-10.44); Carbon Dioxide 27 mmol/L (23-31); Chloride 97 mmol/L (98-107); Estimated GFR-MDRD 61; Globulin 1.9 g/dL (2.4-3.5); Glucose 87 mg/dL (83-110); Lipase 14 U/L (8-78); Protein, Total 4.3 g/dL (6.0-8.3); Sodium 136 mmol/L (136-145)
[2020-03-06 16:14] LABS: Potassium 1.9 mmol/L (3.5-5.1)
[2020-03-06] MEDS ORDERED: Potassium Chloride 20 MEQ TAB ONE (16:16)
--- NOTE | 2020-03-06 16:23 | RAD ---
PORTABLE CHEST ONE VIEW: 03/06/20 at 3:39 p.m. HISTORY: Chest pain, shortness of breath. COMPARISON: 03/07/18. FINDINGS: The heart size is normal. The aorta is tortuous. The lungs are expanded without focal areas of consol idation, pneumothoraces, or pleural effusions. There are postop changes and metallic hardware in the cervical spine and the left humerus. IMPRESSION: No acute process. POS: BENNETT
[2020-03-06] MEDS ORDERED: Potassium Chloride 40 MEQ in Sodium Chloride 0.9% 250 ML 250 ML IVPB SCH (16:30)
--- NOTE | 2020-03-06 16:52 | PDOC.FPRHP ---
- History of Present Illness Chief Complaint: SOB, weakness History of Present Illness: 74 yo F presents with 1 wk hx SOB, dyspnea with exertion and fatigue. Denies cough, fever, congestion. Endorses muscle weakness. Notes decreased PO intake over the past month with difficulty tolerating food. Notes recently had upper and lower scopes with GI, Dr. Molina which was normal. Past several weeks she has had LE edema, given daily lasix in outpatient setting which has helped some. Evaluated by cardiology in the past few weeks and had normal stress test and echo per patient. Cardiology in [place]. 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 Has previously had low potassium and took supplements for ~6 weeks but patient discontinued. ED Course: 80meq K+ - Allergies/Adverse Reactions Allergies Allergy/AdvReac Type Severity Reaction Status Date / Time No Known Drug Allergies Allergy Verified 03/06/20 19:29 - Home Medications Medication Instructions Recorded Confirmed Type DULoxetine [Cymbalta] 60 mg PO DAILY 02/18/18 03/06/20 History Omeprazole 40 mg PO DAILY 10/26/18 03/06/20 History Cyanocobalamin (Vitamin B-12) 2,500 mcg PO DAILY 03/06/20 03/06/20 History [Vitamin B12] Dicyclomine HCl 10 mg PO DAILY 03/06/20 03/06/20 History Furosemide 20 mg PO DAILY 03/06/20 03/06/20 History Multivitamin [Multivitamins] 1 capsule PO DAILY 03/06/20 03/06/20 History Potassium Chloride [K-Dur] 20 meq PO DAILY 03/06/20 03/06/20 History QUEtiapine Fumarate [SEROquel] 300 mg PO DAILY 03/06/20 03/06/20 History - History PMHx: GERD, anxiety, depression, edema PSHx: gastric bypass 2002, L wrist, L humerus, lumbar, R hip replacement FHx: Denies Social: Prior smoker, 40 years-2 packs a week. Quit several years ago. Prior alcohol use, quit several years ago. Denies drug use. - Review of Systems General: reports: weight/appetite/sleep changes (weight loss), fatigue. denies : fever/chills Eyes: denies: eye pain, vision changes ENT: denies: nasal congestion, rhinorrhea Respiratory: reports: shortness of breath, exercise intolerance. denies: cough , congestion Cardiovascular: reports: chest pain, edema Gastrointestinal: reports: nausea, vomiting, diarrhea. denies: constipation Genitourinary: denies: incontinence, dysuria Skin: reports: rashes (scratches on her legs) Musculoskeletal: reports: swelling. denies: pain Neurological: reports: weakness. denies: seizure Psychological: reports: anxiety, depression - Vital signs BP: 109/75 HR: 79 RR: 18 Tmax: 97.9 Pox: 100% on RA Wt: 69.1 kg - Physical Exam Constitutional: awake, alert and oriented HEENT: normocephalic and atraumatic, EOMI, grossly normal vision, grossly normal hearing, MMM Heart: normal S1/S2 (irregular), other (BLE edema) -Heart: 2/6 systolic murmur heard best at the right sternal border Lungs: CTAB, no respiratory distress, good air movement, no rales/rhonchi, no wheezing Abdomen: soft, non-tender, bowel sounds present Musculoskeletal: normal structure Neurological: no focal deficit, CN II-XII intact, normal sensation Skin: no rash/lesions, capillary refill <2 seconds Heme/Lymphatic: no purpura, no petechia, other (bruising on arms and legs, consistent with age) Psychiatric: normal mood and affect FMR H&P: Results - Labs Result Diagrams: 03/07/20 04:30 03/07/20 14:45 Lab results: WBC 10.3 thou/uL (4.8-10.8) 03/06/20 15:38 Hgb 14.5 g/dL (12.0-16.0) 03/06/20 15:38 Hct 46.2 % (36.0-47.0) 03/06/20 15:38 MCV 103.0 fL (78.0-98.0) H 03/06/20 15:38 Plt Count 401 thou/uL (130-400) H 03/06/20 15:38 Neutrophils % 68.7 % (42.0-75.0) 03/06/20 15:38 Sodium 136 mmol/L (136-145) 03/06/20 15:38 Potassium 1.9 mmol/L (3.5-5.1) L* 03/06/20 15:38 Chloride 97 mmol/L (98-107) L 03/06/20 15:38 Carbon Dioxide 27 mmol/L (23-31) 03/06/20 15:38 BUN 12 mg/dL (9.8-20.1) 03/06/20 15:38 Creatinine 0.90 mg/dL (0.6-1.1) 03/06/20 15:38 Glucose 87 mg/dL (83-110) 03/06/20 15:38 Calcium 7.6 mg/dL (7.8-10.44) L 03/06/20 15:38 Total Bilirubin 1.0 mg/dL (0.2-1.2) 03/06/20 15:38 AST 33 U/L (5-34) 03/06/20 15:38 ALT 15 U/L (8-55) 03/06/20 15:38 Alkaline Phosphatase 161 U/L (40-110) H 03/06/20 15:38 Creatine Kinase 184 U/L (29-168) H 03/06/20 15:38 Serum Total Protein 4.3 g/dL (6.0-8.3) L 03/06/20 15:38 Albumin 2.4 g/dL (3.4-4.8) L 03/06/20 15:38 Lipase 14 U/L (8-78) 03/06/20 15:38 - EKG Interpretation EKG: HR 91, irregularly irregular consistent with atrial fibrillation without RVR QRS 90 QTc 580 - Radiology Interpretation Chest x-ray Status: image reviewed by me, report reviewed by me (No acute intrathoracic processes) FMR H&P: A/P - Problem List (1) Hypokalemia Current Visit: Yes Status: Acute Code(s): E87.6 - HYPOKALEMIA - Plan 74 yo F Hypokalemia -Admit to tele -Initial potassium 1.9, S/P 80meq of potassium -Q4hr BMP -Replacing potassium -Pending mag level -magnesium 2 g given in ER Atrial fibrillation -Pending cardiology records -No therapeutic anticoagulation at this time -Will consult cardiology based on old records -Pending TSH -Repeat EKG tonight to reassess after potassium QTc prolongation -Recently on seroquel -Mag and potassium goals of 2.0 and 4.0 respectively -Will repeat EKG tonight Protein malnutrition -Consult dietary GERD -Pepcid Depression -Daughter will bring home meds and will continue at that time HFrEF -Old echo, will repeat tomorrow -No need for urgent diuresis, will wait for potassium replacement -BNP and ABG pending Code: DNR Prophylaxis: Lovenox, pepcid Family: None at bedside Diet: Regular Fluids: SL Disposition: DC in 2-3 days PCP: CC Addendum - Attending - Attending Attestation Date/Time: 03/07/201917 I personally evaluated the patient and discussed the management with Dr. Montano last night. I agree with the History, Examination, Assessment and Plan documented above with any addition or exceptions noted below.
[2020-03-06] MEDS ORDERED: Magnesium 2 GM/50 ML BAG (IN WATER) ONE (17:24)
[2020-03-06 18:38] LABS: Anion Gap 11 mmol/L (10-20); BUN (Urea Nitrogen) 11 mg/dL (9.8-20.1); Calc. Creatinine Clearance 0 mL/min (70-130); Calcium 7.3 mg/dL (7.8-10.44); Carbon Dioxide 28 mmol/L (23-31); Chloride 99 mmol/L (98-107); Estimated GFR-MDRD 68; Glucose 114 mg/dL (83-110); Sodium 136 mmol/L (136-145)
[2020-03-06 18:42] LABS: Potassium 2.2 mmol/L (3.5-5.1)
[2020-03-06] MEDS ORDERED: Ondansetron PF 4 MG/2 ML Vial IVP PRN (19:03)
[2020-03-06] MEDS ORDERED: Ondansetron ODT 4 MG TAB PO PRN (19:03)
[2020-03-06] MEDS ORDERED: Acetaminophen 325 MG TAB PO PRN (19:03)
[2020-03-06] MEDS ORDERED: Potassium Chloride 20 MEQ TAB PO SCH (19:15)
[2020-03-06 20:01] LABS: Anion Gap 11 mmol/L (10-20); BUN (Urea Nitrogen) 11 mg/dL (9.8-20.1); Calc. Creatinine Clearance 0 mL/min (70-130); Calcium 7.2 mg/dL (7.8-10.44); Carbon Dioxide 27 mmol/L (23-31); Chloride 99 mmol/L (98-107); Estimated GFR-MDRD 67; Glucose 118 mg/dL (83-110); Sodium 135 mmol/L (136-145)
[2020-03-06 20:03] LABS: Potassium 2.3 mmol/L (3.5-5.1)
[2020-03-06] MEDS: Famotidine 20 MG TAB PO SCH (20:26)
[2020-03-06 23:42] VITALS: BMI 23.7
[2020-03-06 23:48] LABS: Anion Gap 9 mmol/L (10-20); BUN (Urea Nitrogen) 12 mg/dL (9.8-20.1); Calc. Creatinine Clearance 69 mL/min (70-130); Carbon Dioxide 29 mmol/L (23-31); Chloride 101 mmol/L (98-107); Estimated GFR-MDRD 72; Glucose 67 mg/dL (83-110); Sodium 137 mmol/L (136-145)
[2020-03-06] MEDS: Potassium Chloride 20 MEQ TAB PO SCH (23:50)
[2020-03-06 23:51] LABS: Potassium 2.4 mmol/L (3.5-5.1)
[2020-03-06] MEDS: Potassium Chloride 20 MEQ/100 ML PREMIX BAG IVPB SCH (23:51)
[2020-03-07] MEDS: Potassium Chloride 20 MEQ/100 ML PREMIX BAG IVPB SCH ×3 (02:01→07:57)
[2020-03-07 02:23] LABS: Chloride 104 mmol/L (98-107); Potassium 3.5 mmol/L (3.5-5.1); Sodium 132 mmol/L (136-145)
[2020-03-07 02:24] LABS: Calcium 6.7 mg/dL (7.8-10.44)
[2020-03-07 02:26] LABS: Carbon Dioxide 16 mmol/L (23-31)
[2020-03-07 02:27] LABS: Calc. Creatinine Clearance 67 mL/min (70-130); Estimated GFR-MDRD 70
[2020-03-07 02:28] LABS: BUN (Urea Nitrogen) 12 mg/dL (9.8-20.1); Glucose 58 mg/dL (83-110)
[2020-03-07 02:29] LABS: Anion Gap 16 mmol/L (10-20)
[2020-03-07] MEDS ORDERED: Calcium Chloride 13.6 MEQ in Sodium Chloride 0.9% 100 ML IVPB SCH ×2 (03:00→04:00)
[2020-03-07 04:53] LABS: #Eosinphils 0.1 thou/uL (0.0-0.7); #Monocytes 0.9 thou/uL (0.11-0.59); #Neutrophils 7.9 thou/uL (1.40-6.50); %Basophils 0.3 % (0.0-1.0); %Eosinophils 0.7 % (0.0-10.0); %Lymphocytes 18.4 % (21.0-51.0); %Neutrophils 72.6 % (42.0-75.0); Hemoglobin 12.8 g/dL (12.0-16.0); Mean Corpuscular HGB CONC 33.5 g/dL (32.0-36.0); Mean Corpuscular Hemoglobin 34.5 pg (27.0-31.0); Mean Platelet Volume 6.7 fL (7.4-10.4); Platelet Count 343 thou/uL (130-400); RBC Distribution Width 11.2 % (11.5-14.5); White Blood Cell (WBC) Count 10.8 thou/uL (4.8-10.8)
[2020-03-07 05:06] LABS: Phosphorus 1.3 mg/dL (2.3-4.7)
[2020-03-07 05:11] LABS: Anion Gap 13 mmol/L (10-20); BUN (Urea Nitrogen) 13 mg/dL (9.8-20.1); Calc. Creatinine Clearance 62 mL/min (70-130); Calcium 7.3 mg/dL (7.8-10.44); Carbon Dioxide 22 mmol/L (23-31); Chloride 103 mmol/L (98-107); Estimated GFR-MDRD 65; Glucose 126 mg/dL (83-110); Sodium 135 mmol/L (136-145)
[2020-03-07 05:20] LABS: Potassium 2.9 mmol/L (3.5-5.1)
[2020-03-07] MEDS ORDERED: PHOS-NAK 1 PKT PACK PO SCH (05:45)
[2020-03-07] MEDS ORDERED: Potassium Chloride 20 MEQ TAB PO SCH ×2 (06:00→06:54)
[2020-03-07] MEDS: Potassium Chloride 20 MEQ TAB PO SCH (06:00)
--- NOTE | 2020-03-07 07:19 | PDOC.FM ---
- Subjective Subjective: Ms. Maria says she is feeling better than yesterday. Reports weakness has improved though she does feel a little weak. Denies current CP, SOB. Hopes to try something for breakfast. - Objective Vital Signs & Weight: Vital Signs (12 hours) Temp Pulse Resp BP Pulse Ox 03/07/20 03:40 98.0 F 87 18 100/57 L 99 03/06/20 23:55 92 15 03/06/20 23:35 99.5 F 89 113/58 L 03/06/20 19:20 97.9 F 90 20 103/63 96 Weight Weight 68.674 kg Result Diagrams: 03/07/20 04:30 03/07/20 08:48 Phys Exam - Physical Examination Constitutional: NAD Respiratory: clear to auscultation bilateral Cardiovascular: RRR, no significant murmur Gastrointestinal: soft Musculoskeletal: no edema Neurological: non-focal Psychiatric: normal affect Dx/Plan - Plan Plan: 74 yo F with PMH gastric bypass is admitted for severe hypokalemia. Hypokalemia 2/2 decreased PO intake, malabsorption with hx gastric bypass -Admit to tele -Initial potassium 1.9-> uptrending -Q4hr BMP -Replacing potassium -Pending mag level -magnesium 2 g given in ER Hypophosphatemia - replacing and will recheck in am Hypomagnesemia, resolved - replaced, continue to monitor QTc prolongation -Recently on seroquel -Mag and potassium goals of 2.0 and 4.0 respectively - monitor on tele - EKG was initially read as atrial fibrillation but on further review it appears that this was PAC, PVC activity. Has been in sinus entire time on tele. Protein malnutrition -Consult dietary GERD -Pepcid Depression - hold home duloxetine and seroquel considering prolonged qtc HFrEF -Patient denied history but PCP record showed EF of 40-45% several years ago -BNP normal, CXR neg. Will hold lasix right now while repleting K+. Monitor I/ Os and will restart if signs of fluid overload. Code: DNR Prophylaxis: Lovenox, pepcid Diet: HH Fluids: SL Disposition: Continue to replace electrolytes, monitor on telemetry. PCP: CC Addendum - Attending - Attending Attestation Date/Time: 03/07/20 1141 I personally evaluated the patient and discussed the management with Dr. Dasilva. I agree with the History, Examination, Assessment and Plan documented above with any addition or exceptions noted below. Patient stable, reports she feels much better today. She will need continued K repletion that we suspect is nutritional in origin with exacerbation from Lasix. Holding that for now. Will need therapy. We do not suspect she had any Afib and therefore are holding any further workup of that at this time.
[2020-03-07] MEDS: PHOS-NAK 1 PKT PACK PO SCH ×2 (08:35→14:48)
[2020-03-07] MEDS: Cyanocobalamin (Vitamin B-12) 1,000 MCG TAB PO SCH (08:36)
[2020-03-07] MEDS: Dicyclomine 10 MG CAP PO SCH (08:40)
[2020-03-07] MEDS: Enoxaparin Sodium 40 MG/0.4 ML SYRINGE SC SCH (08:41)
[2020-03-07] MEDS: Famotidine 20 MG TAB PO SCH ×2 (08:41→21:33)
[2020-03-07] MEDS: Magnesium Oxide 400 MG TAB PO SCH (08:44)
[2020-03-07] MEDS ORDERED: Non-Formulary Item 1 EACH (Omeprazole [Omeprazole] 40 MG) PO SCH (09:00)
[2020-03-07] MEDS ORDERED: DULoxetine 30 MG CAP PO SCH (09:00)
[2020-03-07] MEDS ORDERED: Non-Formulary Item 1 EACH (Cyanocobalamin (Vitamin B-12) [Vitamin B12] 2,500 MCG) PO SCH (09:00)
[2020-03-07] MEDS ORDERED: DULoxetine 60 MG CAP PO SCH (09:00)
[2020-03-07 09:21] LABS: Anion Gap 12 mmol/L (10-20); BUN (Urea Nitrogen) 13 mg/dL (9.8-20.1); Calc. Creatinine Clearance 64 mL/min (70-130); Calcium 7.6 mg/dL (7.8-10.44); Carbon Dioxide 21 mmol/L (23-31); Chloride 103 mmol/L (98-107); Estimated GFR-MDRD 67; Glucose 130 mg/dL (83-110); Potassium 3.9 mmol/L (3.5-5.1); Sodium 132 mmol/L (136-145)
[2020-03-07 15:31] LABS: Anion Gap 14 mmol/L (10-20); BUN (Urea Nitrogen) 13 mg/dL (9.8-20.1); Calc. Creatinine Clearance 69 mL/min (70-130); Calcium 7.4 mg/dL (7.8-10.44); Carbon Dioxide 22 mmol/L (23-31); Chloride 104 mmol/L (98-107); Estimated GFR-MDRD 73; Glucose 78 mg/dL (83-110); Sodium 136 mmol/L (136-145)
[2020-03-07] MEDS ORDERED: Lactated Ringer's 500 ML IV SCH (21:00)
[2020-03-08 05:01] LABS: #Eosinphils 0.1 thou/uL (0.0-0.7); #Lymphocytes 1.4 thou/uL (1.20-3.40); #Monocytes 0.6 thou/uL (0.11-0.59); #Neutrophils 4.6 thou/uL (1.40-6.50); %Basophils 0.6 % (0.0-1.0); %Eosinophils 0.9 % (0.0-10.0); %Lymphocytes 20.8 % (21.0-51.0); %Monocytes 8.5 % (0.0-10.0); %Neutrophils 69.3 % (42.0-75.0); Hemoglobin 12.1 g/dL (12.0-16.0); Mean Corpuscular HGB CONC 32.6 g/dL (32.0-36.0); Mean Corpuscular Hemoglobin 33.9 pg (27.0-31.0); Mean Platelet Volume 6.5 fL (7.4-10.4); Platelet Count 290 thou/uL (130-400); RBC Distribution Width 11.2 % (11.5-14.5); Red Blood Cell (RBC) Count 3.58 mill/uL (4.20-5.40); White Blood Cell (WBC) Count 6.6 thou/uL (4.8-10.8)
[2020-03-08 05:24] LABS: Anion Gap 9 mmol/L (10-20); BUN (Urea Nitrogen) 11 mg/dL (9.8-20.1); Calc. Creatinine Clearance 79 mL/min (70-130); Calcium 7.3 mg/dL (7.8-10.44); Carbon Dioxide 27 mmol/L (23-31); Chloride 106 mmol/L (98-107); Estimated GFR-MDRD 85; Glucose 66 mg/dL (83-110); Phosphorus 2.1 mg/dL (2.3-4.7); Potassium 3.8 mmol/L (3.5-5.1); Sodium 138 mmol/L (136-145)
--- NOTE | 2020-03-08 06:28 | PDOC.FM ---
- Subjective Subjective: Ms. Maria reports still feeling weak but better. Did not want to eat much hospital food today. Notes she has followed closely with cardiology. 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 Says she has always had low BP with 90s systolic being normal for her. Additionally has always had low HR. She has been on lasix for ~5 weeks but had stopped taking potassium - Objective Vital Signs & Weight: Vital Signs (12 hours) Temp Pulse Resp BP BP Pulse Ox 03/08/20 04:10 94/55 L 03/08/20 03:39 97.9 F 75 18 80/50 L 100 03/07/20 23:47 87/53 L 03/07/20 20:20 97.7 F 95 16 62/54 L 100 Weight Admit Weight 68.674 kg Weight 68.674 kg I&O: 03/06/20 03/07/20 03/08/20 06:59 06:59 06:59 Intake Total 480 Balance 480 Result Diagrams: 03/08/20 04:49 03/08/20 04:49 Phys Exam - Physical Examination Constitutional: NAD Respiratory: clear to auscultation bilateral Cardiovascular: RRR Gastrointestinal: soft, non-tender Musculoskeletal: no edema Neurological: non-focal Psychiatric: normal affect Skin: normal turgor Dx/Plan - Plan Plan: 74 yo F with PMH gastric bypass is admitted for severe hypokalemia. Hypokalemia 2/2 decreased PO intake, malabsorption with hx gastric bypass, resolved -Initial potassium 1.9-> uptrending -magnesium 2 g given in ER Hypophosphatemia, improving - 2.1 this am. Hypomagnesemia, resolved QTc prolongation -Mag and potassium goals of 2.0 and 4.0 respectively - EKG was initially read as atrial fibrillation but on further review it appears that this was PAC, PVC activity. Has been in sinus entire time on tele. Protein malnutrition -Dietary consulted GERD -Pepcid Depression - continue home duloxetine and seroquel HFrEF - Patient denied history but PCP record showed EF of 40-45% several years ago. Echo this admission 35-40%, diastolic dysfunction - not in exacerbation, BNP normal, CXR neg. - Lasix had been held considering hypokalemia. She has close follow up with her cardiology, missed appt yesterday and has already been in contact with office. Hx hypotnesion and bradycardia so can likely not be on usual HF medications. Code: DNR Prophylaxis: Lovenox, pepcid Diet: HH Fluids: SL Disposition: Patient improving, still a little weak but has ambulated ot bathroom without difficulty. Will reassess this afternoon and could possibly discharge today. PCP: [facility] Addendum - Attending - Attending Attestation Date/Time: 03/08/20 9832 I personally evaluated the patient and discussed the management with [ Brown] I agree with the History, Examination, Assessment and Plan documented above with any addition or exceptions noted below.
[2020-03-08] MEDS: Calcium Carbonate 600 MG + Vit D TAB PO SCH (08:24)
[2020-03-08] MEDS: DULoxetine 60 MG CAP PO SCH (08:24)
[2020-03-08] MEDS: Cyanocobalamin (Vitamin B-12) 1,000 MCG TAB PO SCH (08:24)
[2020-03-08] MEDS: Magnesium Oxide 400 MG TAB PO SCH (08:31)
[2020-03-08] MEDS: Famotidine 20 MG TAB PO SCH ×2 (08:31→20:40)
[2020-03-08] MEDS: Enoxaparin Sodium 40 MG/0.4 ML SYRINGE SC SCH (08:31)
[2020-03-08] MEDS: Dicyclomine 10 MG CAP PO SCH (08:31)
[2020-03-08] MEDS ORDERED: PHOS-NAK 1 PKT PACK PO SCH (18:45)
[2020-03-09 04:31] LABS: #Basophils 0.1 thou/uL (0.0-0.2); #Eosinphils 0.1 thou/uL (0.0-0.7); #Lymphocytes 1.9 thou/uL (1.20-3.40); #Monocytes 0.6 thou/uL (0.11-0.59); #Neutrophils 3.1 thou/uL (1.40-6.50); %Lymphocytes 33.3 % (21.0-51.0); %Monocytes 11.2 % (0.0-10.0); %Neutrophils 53.5 % (42.0-75.0); Hemoglobin 11.1 g/dL (12.0-16.0); Mean Corpuscular HGB CONC 32.2 g/dL (32.0-36.0); Mean Corpuscular Hemoglobin 33.4 pg (27.0-31.0); Mean Platelet Volume 6.4 fL (7.4-10.4); Platelet Count 292 thou/uL (130-400); RBC Distribution Width 11.2 % (11.5-14.5); Red Blood Cell (RBC) Count 3.33 mill/uL (4.20-5.40); White Blood Cell (WBC) Count 5.7 thou/uL (4.8-10.8)
[2020-03-09 05:01] LABS: Anion Gap 6 mmol/L (10-20); BUN (Urea Nitrogen) 13 mg/dL (9.8-20.1); Calc. Creatinine Clearance 80 mL/min (70-130); Carbon Dioxide 27 mmol/L (23-31); Chloride 105 mmol/L (98-107); Estimated GFR-MDRD 85; Glucose 74 mg/dL (83-110); Potassium 3.3 mmol/L (3.5-5.1); Sodium 135 mmol/L (136-145)
--- NOTE | 2020-03-09 06:25 | PDOC.FM ---
- Subjective Subjective: Ms. Maria is feeling great his morning. Says her weakness has improved and she is ready to go home. - Objective Vital Signs & Weight: Vital Signs (12 hours) Temp Pulse Resp BP Pulse Ox 03/09/20 03:56 98 03/09/20 03:29 98.4 F 82 18 74/47 L 98 03/08/20 23:33 89/54 L 03/08/20 19:15 96 03/08/20 19:13 98.1 F 97 16 94/53 L 96 Weight Admit Weight 68.674 kg Weight 69.173 kg I&O: 03/07/20 03/08/20 03/09/20 06:59 06:59 06:59 Intake Total 1080 480 Balance 1080 480 Result Diagrams: 03/09/20 04:20 03/09/20 04:20 Phys Exam - Physical Examination Constitutional: NAD Respiratory: no wheezing, clear to auscultation bilateral Cardiovascular: RRR, no significant murmur Gastrointestinal: soft, non-tender, positive bowel sounds Musculoskeletal: edema present (1+ pitting BLE) Neurological: non-focal Psychiatric: normal affect Skin: no rash Dx/Plan - Plan Plan: 74 yo F with PMH gastric bypass is admitted for severe hypokalemia. Hypokalemia 2/2 decreased PO intake, malabsorption with hx gastric bypass and on lasix, resolved -Initial potassium 1.9-> uptrending. 3.3 this am, replace with 40meq. -magnesium 2 g given in ER Hypophosphatemia, improved - 2.1, replaced Hypomagnesemia, resolved QTc prolongation -Mag and potassium goals of 2.0 and 4.0 respectively - EKG was initially read as atrial fibrillation but on further review it appears that this was PAC, PVC activity. Has been in sinus entire time on tele. Protein malnutrition -Dietary consulted GERD -Pepcid Depression - continue home duloxetine and seroquel HFrEF - Patient denied history but PCP record showed EF of 40-45% several years ago. Echo this admission 35-40%, diastolic dysfunction - not in exacerbation, no orthopnea, BNP normal, CXR neg. - Lasix had been held considering hypokalemia. She has close follow up with her title clerk automobile in [place], missed appt and has already been in contact with office to have it rescheduled. Long Hx hypotension and bradycardia so can likely not be on usual HF medications. Code: DNR Prophylaxis: Lovenox, pepcid Diet: HH Fluids: SL Disposition: CM to assist with HH. Discharge today. PCP: [facility] Addendum - Attending - Attending Attestation Date/Time: 03/09/20 7549 I personally evaluated the patient and discussed the management with [ Brown] I agree with the History, Examination, Assessment and Plan documented above with any addition or exceptions noted below.
[2020-03-09] MEDS ORDERED: Potassium Chloride 20 MEQ TAB PO SCH (06:30)
[2020-03-09] MEDS: Cyanocobalamin (Vitamin B-12) 1,000 MCG TAB PO SCH (08:48)
[2020-03-09] MEDS: DULoxetine 60 MG CAP PO SCH (08:48)
[2020-03-09] MEDS: Magnesium Oxide 400 MG TAB PO SCH (08:49)
[2020-03-09] MEDS: Famotidine 20 MG TAB PO SCH (08:49)
[2020-03-09] MEDS: Calcium Carbonate 600 MG + Vit D TAB PO SCH (08:49)
[2020-03-09] MEDS: Enoxaparin Sodium 40 MG/0.4 ML SYRINGE SC SCH (08:50)
[2020-03-09] MEDS: Dicyclomine 10 MG CAP PO SCH (08:51)
[2020-03-09] MEDS ORDERED: Furosemide 20 MG TAB PO SCH (09:00)
[2020-03-09 13:37] VITALS: BP 96/52; TEMP 97
--- NOTE | 2020-03-10 05:16 | DIS ---
DATE OF ADMISSION: 03/06/2020 DATE OF DISCHARGE: 03/09/2020 RESIDENT: Jennifer Dasilva DO ADMITTING ATTENDING: Faustino Peterson MD DISCHARGE ATTENDING: Jostin Herrera DO CONSULTS: None. PROCEDURES: 03/07/2020, echocardiogram showed poor quality images, ejection fraction 35% to 40%, E-A flow reversal noted suggestive of diastolic dysfunction , normal mitral, aortic, tricuspid valve. Normal left and right atrium sizes. PRIMARY DIAGNOSES: 1. Hypokalemia secondary to decreased p.o. intake, malabsorption, diuretic use. 2. Hypophosphatemia. 3. Hypomagnesemia. 4. QT prolongation. 5. Protein malnutrition. SECONDARY DIAGNOSES: 1. Depression. 2. Gastroesophageal reflux disease. 3. Heart failure with reduced ejection fraction. DISCHARGE MEDICATIONS: 1. Duloxetine 60 mg p.o. daily. 2. Omeprazole 40 mg p.o. daily. 3. Quetiapine 300 mg p.o. daily. 4. Furosemide 20 mg p.o. daily. 5. Multivitamin one capsule p.o. daily. 6. Vitamin B12 2500 mcg p.o. daily. 7. Dicyclomine 10 mg p.o. daily. 8. Calcium of vitamin D supplement one tablet p.o. q.a.m. 9. Potassium chloride 20 mEq p.o. daily. HISTORY OF PRESENT ILLNESS: A 74-year-old female, presented with a 1-week history of fatigue, dyspnea with exertion, muscle weakness, decreased p.o. intake. She reports having decreased p.o. intake and difficulty tolerating foods over the past month. Had a recent upper and lower scopes with Dr. Molina, which patient said was normal. Over the past prior weeks, she had lower extremity edema and was started on Lasix. She said she has been evaluated by Cardiology over the past few weeks and had an extensive workup with him. 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 She has also seen Dr. Elias, Electrophysiology. She was admitted for severe hypokalemia of 1.9 on admission. This was aggressively replaced and levels normalized. Additionally, magnesium and phosphorus were replaced throughout hospitalization. Dietitian was consulted and gave recommendations for patient. Started calcium and vitamin D supplementation. An echo was repeated with results as above. Reviewing clinic documentation, patient had on hand showed a long history of some heart failure with ejection fraction in the 40s years ago. She additionally notes a long history of low blood pressures with systolic typically in the 90s in addition to bradycardia. She says this is known and has been worked up by her Cardiology team. The patient's symptoms significantly improved throughout hospitalization and she was ready to be discharged home. Physical therapy saw patient and recommended home health. Case Management was unable to get this set up over the weekend and the patient preferred to be discharged and get home health set up with her primary care physician in the outpatient setting. DISPOSITION: Stable. DISCHARGE INSTRUCTIONS: LOCATION: Home and to get home health set up outpatient with her primary care physician. DIET: Heart healthy. ACTIVITY: As tolerated. FOLLOWUP: Follow up with primary care physician within 1 week to recheck labs. Follow up with Cardiology at the [facility] within the next two weeks. PRIMARY CARE PROVIDER: Alethea Miller NP Job ID: [id number] MTDD
--- NOTE | 2020-03-12 09:36 | PQF ---
[employer] Kinesiologist [facility] [employer] FABIO Tirado JOSTIN CLEMENTE DO [id number] CLINICAL DOCUMENTATION CLARIFICATION FORM: POST DISCHARGE Addendum to original discharge summary date: ____ Late entry note date: __ DATE: 03/12/2020 ATTN: Jostin Mcclain Please exercise your independent, professional judgment in responding to the clarification form. Clinical indicators are provided on the bottom of this form for your review Kindly clarify regarding acuity of heart failure Please check appropriate box(s): HEART FAILURE: B. ACUITY [ ] Acute [ ] Acute on Chronic [ ] Chronic [ ] Other diagnosis [ ] Unable to determine In addition, please specify: Present on Admission (POA): [ ] Yes [ ] No [ ] Unable to determine For continuity of documentation, please document condition throughout progress notes and discharge summary. Thank You. CLINICAL INDICATORS - SIGNS / SYMPTOMS / LABS Echocardiogram 03/07 showed poor quality images, ejection fraction 35% to 40% - Discharge summary Discharge diagnoses: Heart failure with reduced ejection fraction - Discharge summary HFREF, patient denied history but PCP record showed EF of 45-45% several years ago. BNP normal, cxr negative. Will hold Lasix right now while repleting K+ - PN 03/07 by Josiah Silverio MD Lasix had been held considering hypokalemia. She has close follow up with her cardiology, missed appointment yesterday. Hx of hypotension and bradycardia, so can likely not be on usual HF medications - PN 03/08 by Jostin Herrera DO RISKS: Echocardiogram showed ejection fraction 35% to 40%, E-A flow reversal noted suggestive of diastolic dysfunction - Discharge summary TREATMENTS: Lasix 20 mg PO daily - Medications (This form is maintained as a part of the permanent medical record) 2014 [employer]. All Rights Reserved [email or web address]
--- NOTE | 2020-03-19 11:01 | PQF ---
[employer] Budget Technician [employer] GiancarloROSY KELSEYN CARRASQUILLO JOSTIN CHEN DO [id number] CLINICAL DOCUMENTATION CLARIFICATION FORM: POST DISCHARGE Addendum to original discharge summary date: ____ Late entry note date: __ Date: 03/19/2020 ATTN: Jostin Chen Please exercise your independent, professional judgment in responding to the clarification form. Clinical indicators are provided on the bottom of this form for your review Kindly clarify regarding the severity of malnutrition Please check appropriate box(s): [ ] Protein Calorie Malnutrition: [ ] Mild [ ] Moderate [ ] Severe [ ] Other diagnosis [ ] Unable to determine In addition, please specify: Present on Admission (POA): [ ] Yes [ ] No [ ] Unable to determine CLINICAL INDICATORS - SIGNS / SYMPTOMS / LABS Primary diagnosis: Protein malnutrition - Discharge summary BMI of 23.9 Albumin 2.4 on 03/06 - Lab Hypokalemia 2/2 to decreased p.o. intake, malabsorption with hx gastric bypass. Protein malnutrition, dietary consulted - PN 03/[address] Jostin Chen RISK FACTORS Decreased p.o. intake, malabsorption - Discharge summary TREATMENT: Dietary consulted as per PN 03/[address] Jostin Chen Moderate Malnutrition (in acute illness) Energy Intake: <75% of estimated energy requirement for > 7 days Weight Loss: 1-2%/1 week; 5%/ 1 month; 7.5%/3 months Other: mild body fat loss; mild muscle mass loss; mild fluid accumulation; Severe Malnutrition (in acute illness) Energy Intake: < 50% of estimated energy requirement for > 5 days Weight Loss: >1-2%/1 week; >5%/1 month; >7.5%/3 months Other: moderate body fat loss; moderate muscle mass loss; moderate- severe fluid accumulation; measurably reduced supervisor stave finishing strength Moderate Malnutrition (in chronic illness) [employer] Budget Technician [employer] ViewerEnergy Intake: <75% of estimated energy requirement for >1 month Weight Loss: 5%/1 month; 7.5%/3 months; 10%/6 months; 20%/1 year Other: mild body fat loss; mild muscle mass loss; mild fluid accumulation Severe Malnutrition (in chronic illness) Energy Intake: <75% of estimated energy requirement for >1 month Weight Loss: >5%/1 month; >7.5%/3 months; >10%/6 months; >20%/1 year Other: severe body fat loss; severe muscle mass loss; severe fluid accumulation ; measurably reduced supervisor stave finishing strength (This form is maintained as a part of the permanent medical record) 2014 [employer]. All Rights Reserved [email or web address]
== END 2020-03-09 13:08 | disposition home health service (06) | DRG 641 ==
LOC: ERS 15:31 → 2NO 16:49
PROVIDERS: ADMIT Student in an Organized Health Care Education/Training Program; ATTEND Student in an Organized Health Care Education/Training Program
DX: E87.6 Hypokalemia (principal); K91.2 Postsurgical malabsorption, not elsewhere classified; E46 Unspecified protein-calorie malnutrition; I50.20 Unspecified systolic (congestive) heart failure; K21.9 Gastro-esophageal reflux disease without esophagitis; F41.9 Anxiety disorder, unspecified; Z66 Do not resuscitate; E83.51 Hypocalcemia; F32.9 Major depressive disorder, single episode, unspecified; Z96.641 Presence of right artificial hip joint; I45.81 Long QT syndrome; T50.2X5A Adverse effect of carbonic-anhydrase inhibitors, benzothiadiazides and other diuretics, initial encounter; E83.39 Other disorders of phosphorus metabolism; E83.42 Hypomagnesemia; Z98.84 Bariatric surgery status; Z87.891 Personal history of nicotine dependence; Z68.23 Body mass index [BMI] 23.0-23.9, adult
CPT/HCPCS: 36415; 36416; 71045; 80048; 80053; 82550; 83690; 83735; 83880; 84100; 84443; 84484; 85025; 93005; 93010; 93306; 96365; 96368; J1650; J3475; J3480; J3490; J7050

== ENCOUNTER 2020-07-03 16:59 | Emergency (ER) | payer MEDICARE, BC ==
--- NOTE | 2020-07-03 18:18 | CT ---
CT BRAIN 07/03/20 PROVIDED CLINICAL HISTORY: Fall. FINDINGS: Comparison 03/14/15. The ventricular system is unchanged in size and morphology. There is no evidence for intracranial hem orrhage or mass effect. Chronic microvascular ischemic changes are mild and similar to prior. The ext racranial soft tissues and osseous structures demonstrate an unremarkable CT appearance. IMPRESSION: No evidence for intracranial hemorrhage or mass effect. POS: MALU
--- NOTE | 2020-07-03 18:30 | RAD ---
TWO VIEWS LEFT HIP: 07/03/20 PROVIDED CLINICAL HISTORY: Pain status post injury. FINDINGS: No evidence for fracture or other acute osseous abnormality. If there is persistent clinical concern, conservative management and follow-up imaging are advised. IMPRESSION: As above. POS: MALU
--- NOTE | 2020-07-03 18:32 | RAD ---
PELVIC RADIOGRAPH: 07/03/20 PROVIDED CLINICAL HISTORY: Fall. FINDINGS: Postoperative changes of right total hip arthroplasty are partially visualized without evidence for h ardware complication involving the visualized portions of the construct. Lower lumbar postoperative changes and vascular calcifications are seen. There is no evidence for fra cture or other acute osseous abnormality. If there is persistent clinical concern, conservative manag ement and follow-up imaging are advised. IMPRESSION: As above. POS: MALU
--- NOTE | 2020-07-03 18:33 | RAD ---
LEFT KNEE RADIOGRAPHS FOUR VIEWS: 07/03/20 PROVIDED CLINICAL HISTORY: Left knee pain. FINDINGS: Chondrocalcinosis is noted. There is no evidence for fracture or other acute osseous abnormality. If there is persistent clinical concern, conservative management and follow-up imaging are advised. IMPRESSION: As above. POS: MALU
== END 2020-07-03 20:04 | disposition home or self-care (01) ==
LOC: ERS 16:59
DX: S83.92XA Sprain of unspecified site of left knee, initial encounter (principal); I95.1 Orthostatic hypotension; K21.9 Gastro-esophageal reflux disease without esophagitis; I50.31 Acute diastolic (congestive) heart failure; F41.9 Anxiety disorder, unspecified; F32.9 Major depressive disorder, single episode, unspecified; Z79.899 Other long term (current) drug therapy; Z79.82 Long term (current) use of aspirin; W18.30XA Fall on same level, unspecified, initial encounter
CPT/HCPCS: 70450; 72170; 93005

== ENCOUNTER 2021-09-08 12:25 | Outpatient (CLI) | payer MEDICARE, BC | END 2021-09-08 12:26 | disposition home or self-care (01) | LOC: BICRAD 12:25 | PROVIDERS: ATTEND Nurse Practitioner | DX: S72.115 Nondisplaced fracture of greater trochanter of left femur (principal) ==

== ENCOUNTER 2021-10-12 23:57 | Inpatient (IN) | payer OTHER, MEDICARE, BC ==
[2021-10-13] MEDS ORDERED: Morphine 4 MG/ML VIAL SLOW IVP PRN ×2 (02:12→02:20)
[2021-10-13] MEDS ORDERED: hydrALAZINE 20 MG/ML VIAL SLOW IVP PRN (02:12)
[2021-10-13] MEDS ORDERED: Dextrose 5% in Water 1,000 ML IV PRN (02:12)
[2021-10-13] MEDS ORDERED: Ondansetron PF 4 MG/2 ML Vial IVP PRN (02:12)
[2021-10-13] MEDS ORDERED: Dextrose 50% Abboject 50 ML SYRINGE SLOW IVP PRN (02:12)
[2021-10-13] MEDS ORDERED: Sodium Chloride 0.9% 1,000 ML IV SCH (02:15)
[2021-10-13] MEDS ORDERED: Fentanyl 100 MCG/2 ML VIAL ONE (02:16)
[2021-10-13] MEDS ORDERED: traMADol HCl 50 MG TAB PO PRN (02:18)
[2021-10-13] MEDS ORDERED: Cyclobenzaprine 10 MG TAB PO PRN (02:18)
[2021-10-13 02:57] LABS: #Basophils 0.1 thou/uL (0.0-0.2); #Eosinphils 0.1 thou/uL (0.0-0.7); #Lymphocytes 1.7 thou/uL (1.20-3.40); #Monocytes 0.7 thou/uL (0.11-0.59); #Neutrophils 8.5 thou/uL (1.40-6.50); %Basophils 0.8 % (0.0-1.0); %Eosinophils 0.7 % (0.0-10.0); %Lymphocytes 15.1 % (21.0-51.0); %Monocytes 6.2 % (0.0-10.0); %Neutrophils 77.2 % (42.0-75.0); Mean Corpuscular HGB CONC 34.4 g/dL (32.0-36.0); Mean Corpuscular Hemoglobin 35.7 pg (27.0-31.0); Mean Platelet Volume 6.2 fL (7.4-10.4); Platelet Count 396 thou/uL (130-400); RBC Distribution Width 12.2 % (11.5-14.5); Red Blood Cell (RBC) Count 3.64 mill/uL (4.20-5.40)
[2021-10-13 03:19] LABS: ALT (SGPT) 7 U/L (8-55); AST (SGOT) 20 U/L (5-34); Albumin 3.3 g/dL (3.4-4.8); Alkaline Phosphatase 113 U/L (40-110); Anion Gap 13 mmol/L (10-20); BUN (Urea Nitrogen) 7 mg/dL (9.8-20.1); Bilirubin, Total 0.3 mg/dL (0.2-1.2); Calc. Creatinine Clearance 0 mL/min (70-130); Calcium 9.2 mg/dL (7.8-10.44); Carbon Dioxide 24 mmol/L (23-31); Chloride 102 mmol/L (98-107); Globulin 2.6 g/dL (2.4-3.5); Glucose 88 mg/dL (83-110); Magnesium 1.9 mg/dL (1.6-2.6); Phosphorus 3.3 mg/dL (2.3-4.7); Potassium 3.3 mmol/L (3.5-5.1); Protein, Total 5.9 g/dL (5.8-8.1); Sodium 136 mmol/L (136-145)
[2021-10-13 05:18] LABS: SARS-CoV-2 NAA Rapid Test Not Detected (NotDetected)
[2021-10-13] MEDS ORDERED: traMADol HCl 50 MG TAB ONE ×2 (06:01→11:50)
[2021-10-13] MEDS ORDERED: Acetaminophen 500 MG TAB ONE ×2 (06:01→11:51)
[2021-10-13] MEDS: Acetaminophen 500 MG TAB PO SCH ×2 (06:19→12:00)
[2021-10-13] MEDS: traMADol HCl 50 MG TAB PO SCH ×2 (06:20→12:01)
[2021-10-13] MEDS ORDERED: Potassium Phosphate 30 MMOL in Sodium Chloride 0.9% 250 ML 250 ML IVPB SCH (07:00)
[2021-10-13] MEDS ORDERED: Potassium Chloride 20 MEQ TAB PO SCH (07:30)
[2021-10-13] MEDS ORDERED: Polyethylene Glycol 3350 17 GM Packet PO SCH (09:00)
[2021-10-13] MEDS ORDERED: Famotidine/PF 20 mg/2ml Vial SLOW IVP SCH (09:00)
[2021-10-13] MEDS ORDERED: Senokot S 8.6-50 MG TAB PO SCH (09:00)
[2021-10-13] MEDS ORDERED: Famotidine/PF 20 mg/2ml Vial ONE (09:25)
[2021-10-13] MEDS ORDERED: Cyclobenzaprine 10 MG TAB ONE (11:51)
== END 2021-10-13 02:15 | DRG 536 ==
LOC: ERS 23:57 → ERHOLD 10-13 02:12
PROVIDERS: ADMIT Surgery; ATTEND Surgery
DX: S72.111A Displaced fracture of greater trochanter of right femur, initial encounter for closed fracture (principal); I50.42 Chronic combined systolic (congestive) and diastolic (congestive) heart failure; M97.01XA Periprosthetic fracture around internal prosthetic right hip joint, initial encounter; Z66 Do not resuscitate; Z20.822 Contact with and (suspected) exposure to COVID-19; K21.9 Gastro-esophageal reflux disease without esophagitis; F51.04 Psychophysiologic insomnia; E55.9 Vitamin D deficiency, unspecified; Z96.641 Presence of right artificial hip joint; F41.9 Anxiety disorder, unspecified; F32.A Depression, unspecified; W01.0XXA Fall on same level from slipping, tripping and stumbling without subsequent striking against object, initial encounter; Z60.2 Problems related to living alone; M81.0 Age-related osteoporosis without current pathological fracture; Z98.1 Arthrodesis status; Y92.009 Unspecified place in unspecified non-institutional (private) residence as the place of occurrence of the external cause; Z79.899 Other long term (current) drug therapy; Z79.82 Long term (current) use of aspirin
CPT/HCPCS: 36415; 70450; 71045; 72125; 72170; 80053; 83735; 83880; 84100; 85025; 96374; G0390; J3010; J7050; S0028; U0002

== ENCOUNTER 2022-08-05 10:34 | Outpatient (CLI) | payer MEDICARE, BC ==
[2022-08-05] MEDS ORDERED: Iopamidol-370 76% 500 ML 1 ML ONE (14:03)
== END 2022-08-05 10:35 | disposition home or self-care (01) ==
LOC: BICCT 10:34
PROVIDERS: ATTEND Physician Assistant Medical
DX: R11.0 Nausea (principal); K63.89 Other specified diseases of intestine; Z98.84 Bariatric surgery status
CPT/HCPCS: 74177; Q9967

== ENCOUNTER 2023-01-04 11:08 | Day surgery (SDC) | payer MEDICARE, BC ==
[2023-01-03 11:36] VITALS: BMI 20.9
[~2023-01-04 11:08] MED LIST: Iopamidol 370 76% 100 ML VIAL ONE
[2023-01-04] MEDS ORDERED: Adenosine 6 MG/2 ML VIAL ONE (11:21)
[2023-01-04] MEDS ORDERED: Nitroglycerin 50 MG/250 ML BOT 250 ML ONE (11:21)
[2023-01-04] MEDS ORDERED: Heparin 10,000 UNITS/ 10 ML VIAL ONE (11:21)
[2023-01-04] MEDS ORDERED: Lidocaine 1% (PF) 30 ML VIAL ONE (11:21)
[2023-01-04] MEDS ORDERED: Verapamil 5 MG/2 ML VIAL ONE (11:21)
[2023-01-04 11:58] LABS: #Basophils 0.1 thou/uL (0.0-0.2); #Eosinphils 0.1 thou/uL (0.0-0.7); #Lymphocytes 1.8 thou/uL (1.20-3.40); #Monocytes 0.7 thou/uL (0.11-0.59); #Neutrophils 5.2 thou/uL (1.40-6.50); %Basophils 1.1 % (0.0-1.0); %Eosinophils 1.5 % (0.0-10.0); %Lymphocytes 22.5 % (21.0-51.0); %Monocytes 8.4 % (0.0-10.0); %Neutrophils 66.5 % (42.0-75.0); Mean Corpuscular HGB CONC 31.3 g/dL (32.0-36.0); Mean Corpuscular Hemoglobin 34.4 pg (27.0-31.0); Mean Platelet Volume 6.4 fL (7.4-10.4); Platelet Count 462 10x3/uL (130-400); RBC Distribution Width 11.5 % (11.5-14.5); Red Blood Cell (RBC) Count 4.35 mill/uL (4.20-5.40); White Blood Cell (WBC) Count 7.8 10x3/uL (4.8-10.8)
[2023-01-04 12:21] LABS: MDiff Complete? YES; Macrocytosis SLIGHT = 6-15 cells (100X) (0-5/hpf); Platelet Morphology Comment Appears Increased; Polychromasia SLIGHT = 2-3 cells (100X) (0-2/hpf)
[2023-01-04 12:26] LABS: Anion Gap 17 mmol/L (10-20); BUN (Urea Nitrogen) 12 mg/dL (9.8-20.1); Calc. Creatinine Clearance 58 mL/min (70-130); Calcium 8.7 mg/dL (7.8-10.44); Carbon Dioxide 21 mmol/L (23-31); Chloride 101 mmol/L (98-107); Estimated GFR 74; Glucose 65 mg/dL (83-110); Potassium 4.7 mmol/L (3.5-5.1); Sodium 134 mmol/L (136-145)
[2023-01-04] MEDS ORDERED: FENTANYL 50 MCG/ML 1 ML VIAL ONE (12:53)
[2023-01-04] MEDS ORDERED: Midazolam HCl 2 mg/2 ml Vial ONE (12:53)
== END 2023-01-04 16:53 | disposition home or self-care (01) ==
LOC: CCL 11:08
PROVIDERS: ATTEND Internal Medicine Cardiovascular Disease
PROC: 4A023N7 Measurement of Cardiac Sampling and Pressure, Left Heart, Percutaneous Approach (ICD-10-PCS; principal; 2023-01-04)
PROC: B2111ZZ Fluoroscopy of Multiple Coronary Arteries using Low Osmolar Contrast (ICD-10-PCS; 2023-01-04)
DX: I25.10 Atherosclerotic heart disease of native coronary artery without angina pectoris (principal); I11.0 Hypertensive heart disease with heart failure; I50.22 Chronic systolic (congestive) heart failure; I42.9 Cardiomyopathy, unspecified; G47.33 Obstructive sleep apnea (adult) (pediatric); Z86.73 Personal history of transient ischemic attack (TIA), and cerebral infarction without residual deficits; Z87.891 Personal history of nicotine dependence; Z79.891 Long term (current) use of opiate analgesic; Z79.82 Long term (current) use of aspirin; Z79.899 Other long term (current) drug therapy
CPT/HCPCS: 80048; 85025; J3010; 93454; 99152; C1769; J0153; J1644; J2001; J2250

== ENCOUNTER 2023-02-17 11:44 | Outpatient (CLI) | payer MEDICARE, BC | END 2023-02-17 11:45 | disposition home or self-care (01) | LOC: RAD 11:44 | PROVIDERS: ATTEND Physician Assistant | DX: R06.02 Shortness of breath (principal) | CPT/HCPCS: 36415; 71046; 85379 ==

== ENCOUNTER 2023-06-12 11:33 | Inpatient (IN) | payer MEDICARE, BC ==
[2023-06-12] MEDS ORDERED: Iopamidol-370 76% 500 ML MDV (1 ML CHARGE) ONE (11:50)
[2023-06-12 12:32] LABS: #Monocytes 0.5 thou/uL (0.11-0.59); #Neutrophils 9.4 thou/uL (1.40-6.50); %Basophils 0.3 % (0.0-1.0); %Lymphocytes 11.2 % (21.0-51.0); %Monocytes 4.1 % (0.0-10.0); Hematocrit 33.1 % (36.0-47.0); Mean Corpuscular HGB CONC 33.2 g/dL (32.0-36.0); Mean Corpuscular Hemoglobin 34.5 pg (27.0-31.0); Mean Corpuscular Volume 103.8 fl (78.0-98.0); Mean Platelet Volume 9.1 fL (7.4-10.4); Platelet Count 309 10x3/uL (130-400); RBC Distribution Width 13.8 % (11.5-14.5); Red Blood Cell (RBC) Count 3.19 mill/uL (4.20-5.40); White Blood Cell (WBC) Count 11.2 10x3/uL (4.8-10.8)
[2023-06-12 12:57] LABS: ALT (SGPT) 15 U/L (8-55); AST (SGOT) 29 U/L (5-34); Albumin 1.7 g/dL (3.4-4.8); Alkaline Phosphatase 140 U/L (40-110); Anion Gap 12 mmol/L (10-20); BUN (Urea Nitrogen) 18 mg/dL (9.8-20.1); Bilirubin, Total 1.8 mg/dL (0.2-1.2); Calc. Creatinine Clearance 0 mL/min (70-130); Calcium 7.8 mg/dL (7.8-10.44); Carbon Dioxide 22 mmol/L (23-31); Chloride 106 mmol/L (98-107); Estimated GFR 86; Globulin 2.2 g/dL (2.4-3.5); Glucose 87 mg/dL (83-110); Magnesium 1.6 mg/dL (1.6-2.6); Potassium 3.4 mmol/L (3.5-5.1); Protein, Total 3.9 g/dL (5.8-8.1); Sodium 137 mmol/L (136-145)
[2023-06-12 12:59] LABS: Troponin I 0.013 ng/mL (< 0.028)
[2023-06-12 14:10] LABS: Bilirubin Negative (Negative); Blood, Urine Trace (Negative); CAUTI Indications for Culture Pelvic or flank pain; Clarity Clear (Clear); Glucose, Urine (Dipstick) Normal (Negative); Ketone, Urine Negative (Negative); Leukocyte 250 Leu/uL (Negative); Nitrite Negative (Negative); Protein, Urine (Dipstick) 20 mg/dL (Neg-Trace); RBC/HPF 0-3 HPF (0-3); Squamous Epithelial 0-3 HPF (0-3); pH, Urine 5.5 (5.0-9.0)
[2023-06-12 14:20] LABS: Bacteria/HPF 2+ HPF (None Seen); Urine Culture Reflex Yes Yes
[2023-06-12] MEDS ORDERED: cefTRIAXone (ROCEPHIN) 2 GM VIAL ONE (15:04)
[2023-06-12 15:06] LABS: SARS-CoV-2 NAA Rapid Test Not Detected (NotDetected)
[2023-06-12] MEDS ORDERED: Acetaminophen 500 MG TAB ONE (16:19)
[2023-06-12] MEDS ORDERED: Vancomycin 1 GM/200 ML (FROZEN) BAG ONE (16:30)
[2023-06-12] MEDS ORDERED: Ondansetron ODT 4 MG TAB PO PRN (16:42)
[2023-06-12] MEDS ORDERED: Magnesium 2 GM/50 ML(in water) 2 GM in Premix Bag 1 BAG IVPB SCH (17:00)
[2023-06-12] MEDS ORDERED: Polyethylene Glycol 3350 17 GM Packet PO SCH (17:00)
[2023-06-12] MEDS ORDERED: Potassium Chloride 20 MEQ TAB PO SCH (17:00)
[2023-06-12] MEDS ORDERED: Senokot 8.6 MG TAB PO PRN ×2 (17:42→18:30)
[2023-06-12] MEDS: Lactated Ringer's 1,000 ML IV SCH (18:01)
[2023-06-12 18:23] LABS: Phosphorus 2.7 mg/dL (2.3-4.7)
[2023-06-12 18:25] LABS: Iron 26 ug/dL (50-170)
[2023-06-12 18:26] LABS: Iron 26 ug/dL (50-170)
[2023-06-12 19:55] LABS: Iron Binding Capacity, Total 43 mcg/dL (265-497)
[2023-06-12 19:56] LABS: Iron Binding Capacity, Total 43 mcg/dL (265-497)
[2023-06-12] MEDS: QUEtiapine 300 MG TAB PO SCH (20:43)
[2023-06-12] MEDS: Polyethylene Glycol 3350 17 GM Packet PO SCH (20:44)
[2023-06-12] MEDS ORDERED: Carvedilol 6.25 MG TAB PO SCH (21:00)
[2023-06-13] MEDS ORDERED: Vancomycin 1 GM in Premix Bag 1 BAG IVPB SCH (02:00)
[2023-06-13] MEDS: Lactated Ringer's 1,000 ML IV SCH ×3 (04:51→17:41)
[2023-06-13] MEDS: Acetaminophen 325 MG TAB PO PRN (04:57)
[2023-06-13] MEDS ORDERED: Vancomycin HCl 750 MG in Sodium Chloride 0.9% 250 ML 250 ML IVPB SCH (05:00)
[2023-06-13 06:33] LABS: #Monocytes 0.5 thou/uL (0.11-0.59); #Neutrophils 6.5 thou/uL (1.40-6.50); %Basophils 0.3 % (0.0-1.0); %Eosinophils 0.2 % (0.0-10.0); %Lymphocytes 19.3 % (21.0-51.0); %Monocytes 5.2 % (0.0-10.0); %Neutrophils 74.7 % (42.0-75.0); Hematocrit 30.5 % (36.0-47.0); Hemoglobin 10.1 g/dL (12.0-16.0); Mean Corpuscular HGB CONC 33.1 g/dL (32.0-36.0); Mean Corpuscular Hemoglobin 33.9 pg (27.0-31.0); Mean Corpuscular Volume 102.3 fl (78.0-98.0); Platelet Count 274 10x3/uL (130-400); RBC Distribution Width 14.1 % (11.5-14.5); Red Blood Cell (RBC) Count 2.98 mill/uL (4.20-5.40); White Blood Cell (WBC) Count 8.7 10x3/uL (4.8-10.8)
[2023-06-13 06:57] LABS: ALT (SGPT) 15 U/L (8-55); AST (SGOT) 34 U/L (5-34); Albumin 1.5 g/dL (3.4-4.8); Alkaline Phosphatase 133 U/L (40-110); Anion Gap 11 mmol/L (10-20); BUN (Urea Nitrogen) 16 mg/dL (9.8-20.1); Calc. Creatinine Clearance 75 mL/min (70-130); Calcium 7.6 mg/dL (7.8-10.44); Carbon Dioxide 23 mmol/L (23-31); Chloride 105 mmol/L (98-107); Estimated GFR 91; Globulin 2.1 g/dL (2.4-3.5); Glucose 70 mg/dL (83-110); Magnesium 2.1 mg/dL (1.6-2.6); Phosphorus 2.5 mg/dL (2.3-4.7); Potassium 3.7 mmol/L (3.5-5.1); Protein, Total 3.6 g/dL (5.8-8.1); Sodium 135 mmol/L (136-145)
[2023-06-13] MEDS ORDERED: Lidocaine 4% Patch TD PRN (09:00)
[2023-06-13] MEDS ORDERED: Ergocalciferol 1.25 MG(50,000 UNITS) CAP PO SCH (09:00)
[2023-06-13] MEDS: dilTIAZem 30 MG TAB PO SCH ×2 (09:42→16:59)
[2023-06-13] MEDS: Polyethylene Glycol 3350 17 GM Packet PO SCH ×2 (09:42→20:41)
[2023-06-13] MEDS: Fludrocortisone Acetate 0.1 MG TAB PO SCH (09:43)
[2023-06-13] MEDS: Calcium Carbonate 600 MG + Vit D TAB PO SCH (09:43)
[2023-06-13] MEDS: Cyanocobalamin (Vitamin B-12) 1,000 MCG TAB PO SCH (09:43)
[2023-06-13] MEDS: Multivit, Therapeutic 1 TAB PO SCH (09:43)
[2023-06-13] MEDS: Aspirin Chewable 81 MG TAB PO SCH (09:43)
[2023-06-13] MEDS: Furosemide 20 MG TAB PO SCH (09:43)
[2023-06-13] MEDS: DULoxetine 30 MG CAP PO SCH (09:44)
[2023-06-13] MEDS: Potassium Chloride 20 MEQ TAB PO SCH (09:44)
[2023-06-13] MEDS ORDERED: Naloxegol 12.5 MG TAB PO SCH (10:45)
[2023-06-13] MEDS: cefTRIAXone\\ROCEPHIN 1 GM in Sodium Chloride 0.9% 100 ML IVPB SCH (14:47)
[2023-06-13] MEDS: Bisacodyl 10 MG SUPP PR SCH ×2 (14:47→20:41)
[2023-06-13] MEDS: Fleet Saline Enema 133 ML BOT PR SCH ×2 (14:47→20:40)
[2023-06-13] MEDS: QUEtiapine 300 MG TAB PO SCH (20:41)
[2023-06-13] MEDS: oxyCODONE/Acetaminophen 5 mg/325 mg Tablet PO SCH (20:41)
[2023-06-13] MEDS: Transdermal Patch Removal TOP SCH (22:20)
[2023-06-14] MEDS ORDERED: Benzonatate 100 MG CAP PO PRN (00:08)
[2023-06-14] MEDS: Bisacodyl 10 MG SUPP PR SCH ×6 (00:24→23:53)
[2023-06-14] MEDS: Lactated Ringer's 1,000 ML IV SCH ×3 (02:07→21:12)
[2023-06-14] MEDS: Fleet Saline Enema 133 ML BOT PR SCH ×3 (05:23→20:56)
[2023-06-14 07:00] LABS: #Eosinphils 0.1 thou/uL (0.0-0.7); #Monocytes 0.4 thou/uL (0.11-0.59); #Neutrophils 5.8 thou/uL (1.40-6.50); %Basophils 0.4 % (0.0-1.0); %Eosinophils 1.3 % (0.0-10.0); %Lymphocytes 16.4 % (21.0-51.0); %Monocytes 5.1 % (0.0-10.0); %Neutrophils 76.3 % (42.0-75.0); Hematocrit 30.3 % (36.0-47.0); Hemoglobin 9.8 g/dL (12.0-16.0); Mean Corpuscular HGB CONC 32.3 g/dL (32.0-36.0); Mean Corpuscular Hemoglobin 33.6 pg (27.0-31.0); Mean Corpuscular Volume 103.8 fl (78.0-98.0); Mean Platelet Volume 8.8 fL (7.4-10.4); Platelet Count 272 10x3/uL (130-400); RBC Distribution Width 14.3 % (11.5-14.5); Red Blood Cell (RBC) Count 2.92 mill/uL (4.20-5.40); White Blood Cell (WBC) Count 7.6 10x3/uL (4.8-10.8)
[2023-06-14 07:28] LABS: ALT (SGPT) 15 U/L (8-55); AST (SGOT) 33 U/L (5-34); Albumin 1.5 g/dL (3.4-4.8); Alkaline Phosphatase 141 U/L (40-110); Anion Gap 10 mmol/L (10-20); BUN (Urea Nitrogen) 11 mg/dL (9.8-20.1); Bilirubin, Total 0.7 mg/dL (0.2-1.2); Calc. Creatinine Clearance 77 mL/min (70-130); Calcium 7.5 mg/dL (7.8-10.44); Carbon Dioxide 25 mmol/L (23-31); Chloride 104 mmol/L (98-107); Estimated GFR 91; Glucose 76 mg/dL (83-110); Potassium 3.2 mmol/L (3.5-5.1); Protein, Total 3.5 g/dL (5.8-8.1); Sodium 136 mmol/L (136-145)
[2023-06-14] MEDS: Calcium Carbonate 600 MG + Vit D TAB PO SCH (08:55)
[2023-06-14] MEDS: Cyanocobalamin (Vitamin B-12) 1,000 MCG TAB PO SCH (08:55)
[2023-06-14] MEDS: Multivit, Therapeutic 1 TAB PO SCH (08:55)
[2023-06-14] MEDS: DULoxetine 30 MG CAP PO SCH (08:55)
[2023-06-14] MEDS: Potassium Chloride 20 MEQ TAB PO SCH (08:55)
[2023-06-14] MEDS: Furosemide 20 MG TAB PO SCH (08:56)
[2023-06-14] MEDS: dilTIAZem 30 MG TAB PO SCH ×2 (08:56→16:12)
[2023-06-14] MEDS: oxyCODONE/Acetaminophen 5 mg/325 mg Tablet PO SCH ×2 (08:56→20:55)
[2023-06-14] MEDS: Polyethylene Glycol 3350 17 GM Packet PO SCH ×2 (08:56→20:55)
[2023-06-14] MEDS: Fludrocortisone Acetate 0.1 MG TAB PO SCH (08:56)
[2023-06-14] MEDS: Naloxegol 12.5 MG TAB PO SCH (08:56)
[2023-06-14] MEDS: Aspirin Chewable 81 MG TAB PO SCH (08:56)
[2023-06-14] MEDS: Cholecalciferol 1,000 UNITS (25 MCG) TAB PO SCH (08:56)
[2023-06-14] MEDS: Folic Acid 1 MG TAB PO SCH (08:56)
[2023-06-14 09:05] LABS: Magnesium 1.7 mg/dL (1.6-2.6); Phosphorus 2.8 mg/dL (2.3-4.7)
[2023-06-14] MEDS ORDERED: Potassium Chloride 20 MEQ TAB PO SCH (12:00)
[2023-06-14] MEDS: Cosyntropin 250 MCG VIAL SLOW IVP SCH (12:06)
[2023-06-14] MEDS ORDERED: Magnesium 2 GM/50 ML(in water) 2 GM in Premix Bag 1 BAG IVPB SCH (12:30)
[2023-06-14] MEDS: cefTRIAXone\\ROCEPHIN 1 GM in Sodium Chloride 0.9% 100 ML IVPB SCH (16:11)
[2023-06-14] MEDS: QUEtiapine 300 MG TAB PO SCH (20:55)
[2023-06-14] MEDS: Transdermal Patch Removal TOP SCH (20:56)
[2023-06-15] MEDS: Fleet Saline Enema 133 ML BOT PR SCH ×3 (04:41→22:00)
[2023-06-15] MEDS: Acetaminophen 325 MG TAB PO PRN (04:59)
[2023-06-15] MEDS: Lactated Ringer's 1,000 ML IV SCH (06:35)
[2023-06-15 06:38] LABS: #Eosinphils 0.1 thou/uL (0.0-0.7); #Monocytes 0.4 thou/uL (0.11-0.59); #Neutrophils 4.8 thou/uL (1.40-6.50); %Basophils 0.2 % (0.0-1.0); %Eosinophils 0.8 % (0.0-10.0); %Lymphocytes 17.6 % (21.0-51.0); %Monocytes 6.3 % (0.0-10.0); %Neutrophils 74.8 % (42.0-75.0); Hematocrit 29.2 % (36.0-47.0); Hemoglobin 9.5 g/dL (12.0-16.0); Mean Corpuscular HGB CONC 32.5 g/dL (32.0-36.0); Mean Corpuscular Hemoglobin 33.7 pg (27.0-31.0); Mean Corpuscular Volume 103.5 fl (78.0-98.0); Mean Platelet Volume 9.1 fL (7.4-10.4); Platelet Count 283 10x3/uL (130-400); RBC Distribution Width 14.1 % (11.5-14.5); Red Blood Cell (RBC) Count 2.82 mill/uL (4.20-5.40); White Blood Cell (WBC) Count 6.4 10x3/uL (4.8-10.8)
[2023-06-15 07:02] LABS: ALT (SGPT) 15 U/L (8-55); AST (SGOT) 28 U/L (5-34); Albumin 1.6 g/dL (3.4-4.8); Alkaline Phosphatase 129 U/L (40-110); Anion Gap 9 mmol/L (10-20); BUN (Urea Nitrogen) 9 mg/dL (9.8-20.1); Bilirubin, Total 0.5 mg/dL (0.2-1.2); Calc. Creatinine Clearance 80 mL/min (70-130); Calcium 7.5 mg/dL (7.8-10.44); Carbon Dioxide 27 mmol/L (23-31); Chloride 104 mmol/L (98-107); Estimated GFR 91; Globulin 1.9 g/dL (2.4-3.5); Glucose 94 mg/dL (83-110); Magnesium 2.1 mg/dL (1.6-2.6); Potassium 3.6 mmol/L (3.5-5.1); Protein, Total 3.5 g/dL (5.8-8.1); Sodium 136 mmol/L (136-145)
[2023-06-15] MEDS: Cyanocobalamin (Vitamin B-12) 1,000 MCG TAB PO SCH (08:43)
[2023-06-15] MEDS: Furosemide 20 MG TAB PO SCH (08:43)
[2023-06-15] MEDS: dilTIAZem 30 MG TAB PO SCH ×2 (08:43→17:42)
[2023-06-15] MEDS: Aspirin Chewable 81 MG TAB PO SCH (08:43)
[2023-06-15] MEDS: Cholecalciferol 1,000 UNITS (25 MCG) TAB PO SCH (08:43)
[2023-06-15] MEDS: Calcium Carbonate 600 MG + Vit D TAB PO SCH (08:43)
[2023-06-15] MEDS: Folic Acid 1 MG TAB PO SCH (08:44)
[2023-06-15] MEDS: DULoxetine 30 MG CAP PO SCH (08:44)
[2023-06-15] MEDS: Potassium Chloride 20 MEQ TAB PO SCH (08:44)
[2023-06-15] MEDS: Multivit, Therapeutic 1 TAB PO SCH (08:44)
[2023-06-15] MEDS: Bisacodyl 10 MG SUPP PR SCH ×2 (08:45→17:42)
[2023-06-15] MEDS: oxyCODONE/Acetaminophen 5 mg/325 mg Tablet PO SCH ×2 (08:48→21:59)
[2023-06-15] MEDS: Fludrocortisone Acetate 0.1 MG TAB PO SCH (08:50)
[2023-06-15] MEDS: Polyethylene Glycol 3350 17 GM Packet PO SCH ×2 (08:50→21:58)
[2023-06-15] MEDS: Naloxegol 12.5 MG TAB PO SCH (08:50)
[2023-06-15] MEDS: cefTRIAXone\\ROCEPHIN 1 GM in Sodium Chloride 0.9% 100 ML IVPB SCH (14:32)
[2023-06-15] MEDS: QUEtiapine 300 MG TAB PO SCH (21:58)
[2023-06-15] MEDS: Transdermal Patch Removal TOP SCH (22:00)
[2023-06-16] MEDS: Bisacodyl 10 MG SUPP PR SCH ×3 (00:58→17:13)
[2023-06-16] MEDS: Fleet Saline Enema 133 ML BOT PR SCH ×3 (04:40→20:50)
[2023-06-16 06:11] LABS: #Eosinphils 0.1 thou/uL (0.0-0.7); #Monocytes 0.5 thou/uL (0.11-0.59); #Neutrophils 4.5 thou/uL (1.40-6.50); %Basophils 0.3 % (0.0-1.0); %Eosinophils 1.9 % (0.0-10.0); %Lymphocytes 20.2 % (21.0-51.0); %Monocytes 7.1 % (0.0-10.0); Hematocrit 32.3 % (36.0-47.0); Hemoglobin 10.4 g/dL (12.0-16.0); Mean Corpuscular HGB CONC 32.2 g/dL (32.0-36.0); Mean Corpuscular Hemoglobin 33.7 pg (27.0-31.0); Mean Corpuscular Volume 104.5 fl (78.0-98.0); Mean Platelet Volume 8.7 fL (7.4-10.4); Platelet Count 327 10x3/uL (130-400); RBC Distribution Width 14.2 % (11.5-14.5); Red Blood Cell (RBC) Count 3.09 mill/uL (4.20-5.40); White Blood Cell (WBC) Count 6.4 10x3/uL (4.8-10.8)
[2023-06-16 06:33] LABS: Phosphorus 3.5 mg/dL (2.3-4.7)
[2023-06-16 06:38] LABS: ALT (SGPT) 15 U/L (8-55); AST (SGOT) 25 U/L (5-34); Albumin 1.6 g/dL (3.4-4.8); Alkaline Phosphatase 132 U/L (40-110); Anion Gap 5 mmol/L (10-20); BUN (Urea Nitrogen) 10 mg/dL (9.8-20.1); Bilirubin, Total 0.5 mg/dL (0.2-1.2); Calc. Creatinine Clearance 76 mL/min (70-130); Calcium 7.8 mg/dL (7.8-10.44); Carbon Dioxide 30 mmol/L (23-31); Chloride 104 mmol/L (98-107); Estimated GFR 90; Globulin 2.1 g/dL (2.4-3.5); Glucose 77 mg/dL (83-110); Magnesium 1.9 mg/dL (1.6-2.6); Potassium 3.6 mmol/L (3.5-5.1); Protein, Total 3.7 g/dL (5.8-8.1); Sodium 135 mmol/L (136-145)
[2023-06-16] MEDS: Polyethylene Glycol 3350 17 GM Packet PO SCH ×2 (10:10→20:55)
[2023-06-16] MEDS: Naloxegol 12.5 MG TAB PO SCH (10:10)
[2023-06-16] MEDS: Potassium Chloride 20 MEQ TAB PO SCH (10:11)
[2023-06-16] MEDS: Aspirin Chewable 81 MG TAB PO SCH (10:11)
[2023-06-16] MEDS: Cyanocobalamin (Vitamin B-12) 1,000 MCG TAB PO SCH (10:11)
[2023-06-16] MEDS: Calcium Carbonate 600 MG + Vit D TAB PO SCH (10:11)
[2023-06-16] MEDS: Multivit, Therapeutic 1 TAB PO SCH (10:11)
[2023-06-16] MEDS: DULoxetine 30 MG CAP PO SCH (10:12)
[2023-06-16] MEDS: Folic Acid 1 MG TAB PO SCH (10:12)
[2023-06-16] MEDS: oxyCODONE/Acetaminophen 5 mg/325 mg Tablet PO SCH ×2 (10:12→20:56)
[2023-06-16] MEDS: Cholecalciferol 1,000 UNITS (25 MCG) TAB PO SCH (10:12)
[2023-06-16] MEDS: Fludrocortisone Acetate 0.1 MG TAB PO SCH (10:12)
[2023-06-16] MEDS: Furosemide 20 MG TAB PO SCH (10:13)
[2023-06-16] MEDS: Cosyntropin 250 MCG VIAL SLOW IVP SCH (10:13)
[2023-06-16] MEDS: dilTIAZem 30 MG TAB PO SCH (10:55)
[2023-06-16] MEDS: cefTRIAXone\\ROCEPHIN 1 GM in Sodium Chloride 0.9% 100 ML IVPB SCH (15:33)
[2023-06-16] MEDS: Transdermal Patch Removal TOP SCH (20:55)
[2023-06-16] MEDS: QUEtiapine 300 MG TAB PO SCH (20:56)
[2023-06-17] MEDS: Bisacodyl 10 MG SUPP PR SCH ×2 (01:06→07:45)
[2023-06-17] MEDS: Fleet Saline Enema 133 ML BOT PR SCH ×2 (04:02→07:45)
[2023-06-17 06:53] LABS: #Eosinphils 0.1 thou/uL (0.0-0.7); #Monocytes 0.7 thou/uL (0.11-0.59); #Neutrophils 4.6 thou/uL (1.40-6.50); %Basophils 0.6 % (0.0-1.0); %Eosinophils 1.3 % (0.0-10.0); %Lymphocytes 22.6 % (21.0-51.0); %Neutrophils 65.2 % (42.0-75.0); Hematocrit 35.1 % (36.0-47.0); Hemoglobin 10.9 g/dL (12.0-16.0); Mean Corpuscular HGB CONC 31.1 g/dL (32.0-36.0); Mean Corpuscular Volume 109.3 fl (78.0-98.0); Mean Platelet Volume 8.6 fL (7.4-10.4); Platelet Count 350 10x3/uL (130-400); RBC Distribution Width 14.4 % (11.5-14.5); Red Blood Cell (RBC) Count 3.21 mill/uL (4.20-5.40)
[2023-06-17 07:39] LABS: AST (SGOT) 27 U/L (5-34); Albumin 1.4 g/dL (3.4-4.8); Bilirubin, Total 0.5 mg/dL (0.2-1.2); Calcium 7.9 mg/dL (7.8-10.44); Chloride 105 mmol/L (98-107); Glucose 67 mg/dL (83-110); Potassium 3.8 mmol/L (3.5-5.1); Sodium 133 mmol/L (136-145)
[2023-06-17 07:40] LABS: Globulin 2.7 g/dL (2.4-3.5); Protein, Total 4.1 g/dL (5.8-8.1)
[2023-06-17 07:41] LABS: Carbon Dioxide 19 mmol/L (23-31)
[2023-06-17 07:42] LABS: Alkaline Phosphatase 154 U/L (40-110)
[2023-06-17 07:43] LABS: Calc. Creatinine Clearance 75 mL/min (70-130); Estimated GFR 90
[2023-06-17 07:44] LABS: BUN (Urea Nitrogen) 12 mg/dL (9.8-20.1)
[2023-06-17 07:45] LABS: ALT (SGPT) 15 U/L (8-55); Magnesium 1.9 mg/dL (1.6-2.6)
[2023-06-17 07:50] LABS: Anion Gap 13 mmol/L (10-20)
[2023-06-17] MEDS ORDERED: dilTIAZem 30 MG TAB PO SCH ×2 (09:00→09:45)
[2023-06-17] MEDS: Polyethylene Glycol 3350 17 GM Packet PO SCH ×2 (09:15→19:53)
[2023-06-17] MEDS: Calcium Carbonate 600 MG + Vit D TAB PO SCH (09:17)
[2023-06-17] MEDS: Cholecalciferol 1,000 UNITS (25 MCG) TAB PO SCH (09:17)
[2023-06-17] MEDS: Potassium Chloride 20 MEQ TAB PO SCH (09:17)
[2023-06-17] MEDS: Cyanocobalamin (Vitamin B-12) 1,000 MCG TAB PO SCH (09:17)
[2023-06-17] MEDS: DULoxetine 30 MG CAP PO SCH (09:17)
[2023-06-17] MEDS: Multivit, Therapeutic 1 TAB PO SCH (09:17)
[2023-06-17] MEDS: Fludrocortisone Acetate 0.1 MG TAB PO SCH (09:18)
[2023-06-17] MEDS: oxyCODONE/Acetaminophen 5 mg/325 mg Tablet PO SCH ×2 (09:18→19:53)
[2023-06-17] MEDS: Furosemide 20 MG TAB PO SCH (09:18)
[2023-06-17] MEDS: Folic Acid 1 MG TAB PO SCH (09:18)
[2023-06-17] MEDS: Aspirin Chewable 81 MG TAB PO SCH (09:18)
[2023-06-17] MEDS: Naloxegol 12.5 MG TAB PO SCH (09:19)
[2023-06-17 14:20] LABS: Phosphorus 3.4 mg/dL (2.3-4.7)
[2023-06-17] MEDS: QUEtiapine 300 MG TAB PO SCH (19:53)
[2023-06-17] MEDS: Transdermal Patch Removal TOP SCH (19:54)
[2023-06-17] MEDS: Acetaminophen 325 MG TAB PO PRN (23:54)
[2023-06-18] MEDS ORDERED: Magnesium Oxide 400 MG TAB PO SCH (00:21)
[2023-06-18] MEDS ORDERED: Methyl Salicylate/Menthol 85 GM TUBE TOP PRN (00:25)
[2023-06-18] MEDS ORDERED: Melatonin 3 MG TAB PO PRN (00:28)
[2023-06-18 00:45] VITALS: TEMP 97.6
[2023-06-18 04:13] VITALS: BMI 22.8
[2023-06-18 07:40] LABS: #Basophils 0.1 thou/uL (0.0-0.2); #Eosinphils 0.1 thou/uL (0.0-0.7); #Monocytes 0.4 thou/uL (0.11-0.59); #Neutrophils 2.6 thou/uL (1.40-6.50); %Basophils 1.2 % (0.0-1.0); %Eosinophils 3.3 % (0.0-10.0); %Lymphocytes 25.2 % (21.0-51.0); %Monocytes 9.6 % (0.0-10.0); %Neutrophils 60.2 % (42.0-75.0); Hemoglobin 10.1 g/dL (12.0-16.0); Mean Corpuscular HGB CONC 31.6 g/dL (32.0-36.0); Mean Corpuscular Hemoglobin 34.2 pg (27.0-31.0); Mean Corpuscular Volume 108.5 fl (78.0-98.0); Mean Platelet Volume 8.5 fL (7.4-10.4); Platelet Count 304 10x3/uL (130-400); RBC Distribution Width 14.4 % (11.5-14.5); Red Blood Cell (RBC) Count 2.95 mill/uL (4.20-5.40); White Blood Cell (WBC) Count 4.3 10x3/uL (4.8-10.8)
[2023-06-18 08:03] LABS: ALT (SGPT) 11 U/L (8-55); AST (SGOT) 27 U/L (5-34); Albumin 1.3 g/dL (3.4-4.8); Alkaline Phosphatase 123 U/L (40-110); Anion Gap 9 mmol/L (10-20); BUN (Urea Nitrogen) 13 mg/dL (9.8-20.1); Bilirubin, Total 0.5 mg/dL (0.2-1.2); Calc. Creatinine Clearance 69 mL/min (70-130); Calcium 7.6 mg/dL (7.8-10.44); Carbon Dioxide 25 mmol/L (23-31); Chloride 106 mmol/L (98-107); Estimated GFR 86; Globulin 2.3 g/dL (2.4-3.5); Glucose 73 mg/dL (83-110); Magnesium 1.9 mg/dL (1.6-2.6); Potassium 3.9 mmol/L (3.5-5.1); Protein, Total 3.6 g/dL (5.8-8.1); Sodium 136 mmol/L (136-145)
[2023-06-18] MEDS: Naloxegol 12.5 MG TAB PO SCH (08:31)
[2023-06-18] MEDS: Aspirin Chewable 81 MG TAB PO SCH (08:32)
[2023-06-18] MEDS: Polyethylene Glycol 3350 17 GM Packet PO SCH (08:32)
[2023-06-18] MEDS: Fludrocortisone Acetate 0.1 MG TAB PO SCH (08:32)
[2023-06-18] MEDS: DULoxetine 30 MG CAP PO SCH (08:32)
[2023-06-18] MEDS: Potassium Chloride 20 MEQ TAB PO SCH (08:32)
[2023-06-18] MEDS: Folic Acid 1 MG TAB PO SCH (08:32)
[2023-06-18] MEDS: Furosemide 20 MG TAB PO SCH (08:33)
[2023-06-18] MEDS: Multivit, Therapeutic 1 TAB PO SCH (08:33)
[2023-06-18] MEDS: Cyanocobalamin (Vitamin B-12) 1,000 MCG TAB PO SCH (08:33)
[2023-06-18] MEDS: Cholecalciferol 1,000 UNITS (25 MCG) TAB PO SCH (08:33)
[2023-06-18] MEDS: Calcium Carbonate 600 MG + Vit D TAB PO SCH (08:36)
[2023-06-18] MEDS: oxyCODONE/Acetaminophen 5 mg/325 mg Tablet PO SCH (08:37)
[2023-06-18 08:56] VITALS: BP 115/80
[2023-06-18] MEDS ORDERED: dilTIAZem 30 MG TAB PO SCH (09:00)
== END 2023-06-18 15:32 | DRG 388 ==
LOC: ERS 11:33 → T4-B 15:53 → OBSVTOIN 06-14 13:08
PROVIDERS: ADMIT Family Medicine; ATTEND Family Medicine
DX: K56.41 Fecal impaction (principal); E43 Unspecified severe protein-calorie malnutrition; N39.0 Urinary tract infection, site not specified; I50.22 Chronic systolic (congestive) heart failure; R64 Cachexia; G89.29 Other chronic pain; Z66 Do not resuscitate; M54.9 Dorsalgia, unspecified; R53.81 Other malaise; E86.0 Dehydration; E87.6 Hypokalemia; E83.42 Hypomagnesemia; R62.7 Adult failure to thrive; K21.9 Gastro-esophageal reflux disease without esophagitis; S81.809A Unspecified open wound, unspecified lower leg, initial encounter; Z20.822 Contact with and (suspected) exposure to COVID-19; Z79.899 Other long term (current) drug therapy; Z87.891 Personal history of nicotine dependence; Z68.22 Body mass index [BMI] 22.0-22.9, adult; Z86.73 Personal history of transient ischemic attack (TIA), and cerebral infarction without residual deficits; Z98.84 Bariatric surgery status; Z98.890 Other specified postprocedural states; X58.XXXA Exposure to other specified factors, initial encounter
CPT/HCPCS: 36415; 36416; 51702; 71045; 74177; 80053; 80400; 81001; 82306; 82607; 82728; 83540; 83550; 83605; 83735; 83880; 84100; 84425; 84443; 84484; 85025; 87040; 87077; 87081; 87086; 87186; 93005; 93970; 96365; 96372; 96375; 96376; 97139; G0378; J0696; J0834; J1650; J3370; J3370-JW; J3475; J3490; J7050; J7120; Q0162; Q9967

== ENCOUNTER 2023-12-15 14:02 | Outpatient (CLI) | payer MEDICARE, BC | END 2023-12-15 14:03 | disposition home or self-care (01) | LOC: BICMRI 14:02 | PROVIDERS: ATTEND Family Medicine | DX: M96.1 Postlaminectomy syndrome, not elsewhere classified (principal); M48.062 Spinal stenosis, lumbar region with neurogenic claudication; M48.56XA Collapsed vertebra, not elsewhere classified, lumbar region, initial encounter for fracture; M48.8X6 Other specified spondylopathies, lumbar region | CPT/HCPCS: 72158; 82565 ==

== ENCOUNTER 2024-04-21 11:20 | Outpatient (CLI) | payer MEDICARE, BC | END 2024-04-21 11:21 | disposition home or self-care (01) | LOC: SCSMRI 11:20 | PROVIDERS: ATTEND Nurse Practitioner Family | DX: L89.214 Pressure ulcer of right hip, stage 4 (principal); I73.9 Peripheral vascular disease, unspecified; D51.0 Vitamin B12 deficiency anemia due to intrinsic factor deficiency; I50.22 Chronic systolic (congestive) heart failure; E55.9 Vitamin D deficiency, unspecified; S32.591D Other specified fracture of right pubis, subsequent encounter for fracture with routine healing; S32.119D Unspecified Zone I fracture of sacrum, subsequent encounter for fracture with routine healing | CPT/HCPCS: 82565 ==

== ENCOUNTER 2024-05-28 00:21 | Inpatient (IN) | payer MEDICARE, BC ==
[2024-05-28] MEDS ORDERED: Morphine 4 MG/ML VIAL ONE (00:39)
[2024-05-28 01:10] LABS: #Basophils 0.07 10x3/uL (0.0-0.2); %Basophils 0.8 % (0.0-1.0); %Eosinophils 1.3 % (0.0-10.0); %Lymphocytes 10.2 % (21.0-51.0); %Monocytes 7.2 % (0.0-10.0); %Neutrophils 80.2 % (42.0-75.0); Hematocrit 37.8 % (36.0-47.0); Hemoglobin 12.5 g/dL (12.0-16.0); Mean Corpuscular HGB CONC 33.1 g/dL (32.0-36.0); Mean Corpuscular Hemoglobin 35.8 pg (27.0-31.0); Mean Corpuscular Volume 108.3 fL (78.0-98.0); Mean Platelet Volume 8.6 fL (7.4-10.4); Platelet Count 268 10x3/uL (130-400); RBC Distribution Width 13.5 % (11.5-14.5); Red Blood Cell (RBC) Count 3.49 mill/uL (4.20-5.40)
[2024-05-28 01:52] LABS: ALT (SGPT) 9 U/L (8-55); AST (SGOT) 27 U/L (5-34); Albumin 2.8 g/dL (3.4-4.8); Alkaline Phosphatase 121 U/L (40-110); Anion Gap 16 mmol/L (10-20); BUN (Urea Nitrogen) 5 mg/dL (9.8-20.1); Bilirubin, Total 0.5 mg/dL (0.2-1.2); Calc. Creatinine Clearance 0 mL/min (70-130); Calcium 8.7 mg/dL (7.8-10.44); Carbon Dioxide 22 mmol/L (23-31); Chloride 104 mmol/L (98-107); Estimated GFR 91; Globulin 2.7 g/dL (2.4-3.5); Glucose 70 mg/dL (83-110); Potassium 3.9 mmol/L (3.5-5.1); Protein, Total 5.5 g/dL (5.8-8.1); Sodium 138 mmol/L (136-145)
[2024-05-28] MEDS ORDERED: Ondansetron PF 4 MG/2 ML Vial IVP PRN (04:44)
[2024-05-28] MEDS ORDERED: Acetaminophen 325 MG TAB PO PRN (04:44)
[2024-05-28 05:19] VITALS: BMI 18.6
[2024-05-28] MEDS: traMADol HCl 50 MG TAB PO PRN (05:59)
[2024-05-28] MEDS: Sodium Chloride 0.9% 1,000 ML IV SCH (06:00)
[2024-05-28] MEDS ORDERED: Morphine 2 MG/ML VIAL SLOW IVP PRN (07:14)
[2024-05-28] MEDS ORDERED: traMADol HCl 50 MG TAB PO PRN (07:14)
[2024-05-28] MEDS ORDERED: Ketorolac Tromethamine 30 MG (1 mL) VIAL IVP PRN (07:15)
[2024-05-28] MEDS: Acetaminophen 325 MG TAB PO SCH (08:49)
[2024-05-28] MEDS: Famotidine/PF 20 mg/2ml Vial SLOW IVP SCH (08:50)
[2024-05-28] MEDS: HYDROcodone/Acetaminophen 10/325 mg Tablet PO PRN (09:02)
[2024-05-28] MEDS ORDERED: Iopamidol-370 76% 500 ML MDV (1 ML CHARGE) ONE (11:49)
[2024-05-28] MEDS ORDERED: traMADol HCl 50 MG TAB PO SCH (12:00)
[2024-05-28] MEDS: Ketorolac Tromethamine 30 MG (1 mL) VIAL IVP SCH (13:11)
[2024-05-28] MEDS ORDERED: Melatonin 3 MG TAB PO PRN (13:24)
[2024-05-28] MEDS ORDERED: SENNOSIDES 25 MG PO PRN (13:24)
[2024-05-28] MEDS: Magnesium Citrate 300 ML BOT PO SCH (13:28)
[2024-05-28] MEDS: Lactulose 20 GM (30 mL) UDCUP PO SCH (15:07)
[2024-05-28] MEDS: QUEtiapine 300 MG TAB PO SCH (20:46)
[2024-05-28] MEDS: dilTIAZem 30 MG TAB PO SCH (20:46)
[2024-05-28] MEDS: Senokot S 8.6-50 MG TAB PO SCH (20:46)
[2024-05-29 05:44] LABS: #Basophils 0.03 10x3/uL (0.0-0.2); %Basophils 0.6 % (0.0-1.0); %Lymphocytes 24.7 % (21.0-51.0); %Monocytes 10.6 % (0.0-10.0); %Neutrophils 59.9 % (42.0-75.0); Hematocrit 34.4 % (36.0-47.0); Hemoglobin 11.1 g/dL (12.0-16.0); Mean Corpuscular HGB CONC 32.3 g/dL (32.0-36.0); Mean Corpuscular Hemoglobin 35.5 pg (27.0-31.0); Mean Corpuscular Volume 109.9 fL (78.0-98.0); Mean Platelet Volume 8.9 fL (7.4-10.4); Platelet Count 212 10x3/uL (130-400); RBC Distribution Width 13.7 % (11.5-14.5); Red Blood Cell (RBC) Count 3.13 mill/uL (4.20-5.40)
[2024-05-29 05:59] LABS: Anion Gap 11 mmol/L (10-20); BUN (Urea Nitrogen) 11 mg/dL (9.8-20.1); Calc. Creatinine Clearance 65 mL/min (70-130); Calcium 8.3 mg/dL (7.8-10.44); Carbon Dioxide 30 mmol/L (23-31); Chloride 106 mmol/L (98-107); Estimated GFR 90; Glucose 95 mg/dL (83-110); Potassium 3.3 mmol/L (3.5-5.1); Sodium 144 mmol/L (136-145)
[2024-05-29] MEDS: DULoxetine 60 MG CAP PO SCH (08:44)
[2024-05-29] MEDS: Aspirin Chewable 81 MG TAB PO SCH (08:44)
[2024-05-29] MEDS: Polyethylene Glycol 3350 17 GM Packet PO SCH (08:44)
[2024-05-29] MEDS: Bumetanide 1 MG TAB PO SCH (08:45)
[2024-05-29] MEDS: Pantoprazole DR 40 MG TAB PO SCH (08:45)
[2024-05-31] MEDS: Cyclobenzaprine 10 MG TAB PO PRN (09:00)
[2024-05-31 10:31] VITALS: BP 154/73; TEMP 98
== END 2024-05-31 12:40 | disposition home health service (06) | DRG 913 ==
LOC: ERS 00:21 → SURG A 04:47
PROVIDERS: ADMIT Surgery; ATTEND Surgery
PROC: 0HQKXZZ Repair Right Lower Leg Skin, External Approach (ICD-10-PCS; principal; 2024-05-28)
DX: S36.892A Contusion of other intra-abdominal organs, initial encounter (principal); L89.203 Pressure ulcer of unspecified hip, stage 3; L89.213 Pressure ulcer of right hip, stage 3; I50.42 Chronic combined systolic (congestive) and diastolic (congestive) heart failure; K21.9 Gastro-esophageal reflux disease without esophagitis; E55.9 Vitamin D deficiency, unspecified; F41.9 Anxiety disorder, unspecified; F32.A Depression, unspecified; G89.29 Other chronic pain; M54.9 Dorsalgia, unspecified; G47.33 Obstructive sleep apnea (adult) (pediatric); Z96.641 Presence of right artificial hip joint; I10 Essential (primary) hypertension; W19.XXXA Unspecified fall, initial encounter; Y93.89 Activity, other specified; Y92.89 Other specified places as the place of occurrence of the external cause; Z79.82 Long term (current) use of aspirin; Z79.899 Other long term (current) drug therapy; Z79.891 Long term (current) use of opiate analgesic
CPT/HCPCS: 36415; 36416; 72192; 74177; 80048; 80053; 85025; 86141; 86850; 86900; 86901; 87070; 87077; 87186; 87205; 93005; 96374; 97139; J1885; J2272; J3490; J7030; Q9967

== ENCOUNTER 2024-08-14 12:08 | Emergency (ER) | payer MEDICARE, BC | END 2024-08-14 14:07 | disposition home or self-care (01) | LOC: ERS 12:08 | DX: M25.462 Effusion, left knee (principal); M11.262 Other chondrocalcinosis, left knee | CPT/HCPCS: 99283 ==

== ENCOUNTER 2024-09-03 18:25 | Inpatient (IN) | payer MEDICARE, BC ==
[2024-09-03] MEDS ORDERED: Ondansetron PF 4 MG/2 ML Vial ONE (19:15)
[2024-09-03] MEDS ORDERED: Morphine 2 MG/ML VIAL ONE (19:15)
[2024-09-03 19:48] LABS: #Basophils 0.03 10x3/uL (0.0-0.2); #Eosinophils Less than 0.03 10x3/uL (0.0-0.7); %Basophils 0.3 % (0.0-1.0); %Lymphocytes 5.7 % (21.0-51.0); %Monocytes 5.9 % (0.0-10.0); %Neutrophils 87.6 % (42.0-75.0); Hematocrit 32.1 % (36.0-47.0); Hemoglobin 10.7 g/dL (12.0-16.0); Mean Corpuscular HGB CONC 33.3 g/dL (32.0-36.0); Mean Corpuscular Hemoglobin 34.5 pg (27.0-31.0); Mean Corpuscular Volume 103.5 fL (78.0-98.0); Mean Platelet Volume 8.3 fL (7.4-10.4); Platelet Count 369 10x3/uL (130-400); RBC Distribution Width 12.3 % (11.5-14.5)
[2024-09-03 20:10] LABS: INR-International Normal Ratio 1.2; Prothrombin Time 14.7 sec (12.0-14.7)
[2024-09-03 20:11] LABS: PTT 29.8 sec (22.9-36.1)
[2024-09-03 20:17] LABS: ALT (SGPT) 9 U/L (8-55); AST (SGOT) 20 U/L (5-34); Albumin 3.1 g/dL (3.4-4.8); Alkaline Phosphatase 130 U/L (40-110); Anion Gap 16 mmol/L (10-20); BUN (Urea Nitrogen) 11 mg/dL (9.8-20.1); Bilirubin, Total 0.7 mg/dL (0.2-1.2); CK (CPK) 94 U/L (29-168); Calc. Creatinine Clearance 0 mL/min (70-130); Calcium 8.7 mg/dL (7.8-10.44); Carbon Dioxide 24 mmol/L (23-31); Estimated GFR 91; Globulin 2.9 g/dL (2.4-3.5); Glucose 141 mg/dL (83-110); Potassium 4.7 mmol/L (3.5-5.1)
[2024-09-03 20:22] LABS: Troponin I Less than 0.010 ng/mL (< 0.028)
[2024-09-03 20:49] LABS: Chloride 99 mmol/L (98-107); Sodium 135 mmol/L (136-145)
[2024-09-03] MEDS ORDERED: Ketamine In 0.9 % NaCl 50 MG/5 ML SYRINGE ONE (21:18)
[2024-09-03] MEDS ORDERED: Glucagon 1 MG/ML KIT IM PRN (22:39)
[2024-09-03] MEDS ORDERED: Dextrose 50% Abboject 50 ML SYRINGE SLOW IVP PRN (22:39)
[2024-09-03] MEDS ORDERED: Dextrose 5% in Water 1,000 ML IV PRN (22:39)
[2024-09-03] MEDS ORDERED: Ondansetron ODT 4 MG TAB PO PRN (22:39)
[2024-09-03] MEDS ORDERED: traMADol HCl 50 MG TAB PO PRN (22:39)
[2024-09-03] MEDS ORDERED: Ipratropium/Albuterol 3 ML NEB NEB PRN (22:39)
[2024-09-04] MEDS: Lactated Ringer's 1,000 ML IV SCH (00:40)
[2024-09-04] MEDS: Morphine 2 MG/ML VIAL SLOW IVP PRN (00:41)
[2024-09-04 05:02] VITALS: BMI 19.0
[2024-09-04 05:57] LABS: #Basophils 0.04 10x3/uL (0.0-0.2); #Eosinophils Less than 0.03 10x3/uL (0.0-0.7); %Basophils 0.4 % (0.0-1.0); %Eosinophils 0.1 % (0.0-10.0); %Lymphocytes 14.4 % (21.0-51.0); %Monocytes 12.1 % (0.0-10.0); %Neutrophils 72.7 % (42.0-75.0); Hematocrit 28.8 % (36.0-47.0); Hemoglobin 9.6 g/dL (12.0-16.0); Mean Corpuscular HGB CONC 33.3 g/dL (32.0-36.0); Mean Corpuscular Hemoglobin 34.4 pg (27.0-31.0); Mean Corpuscular Volume 103.2 fL (78.0-98.0); Mean Platelet Volume 8.7 fL (7.4-10.4); Platelet Count 360 10x3/uL (130-400); RBC Distribution Width 12.5 % (11.5-14.5); Red Blood Cell (RBC) Count 2.79 mill/uL (4.20-5.40)
[2024-09-04 06:33] LABS: Anion Gap 13 mmol/L (10-20); BUN (Urea Nitrogen) 14 mg/dL (9.8-20.1); Calc. Creatinine Clearance 64 mL/min (70-130); Calcium 8.5 mg/dL (7.8-10.44); Carbon Dioxide 26 mmol/L (23-31); Chloride 102 mmol/L (98-107); Estimated GFR 90; Glucose 120 mg/dL (83-110); Potassium 3.9 mmol/L (3.5-5.1); Sodium 137 mmol/L (136-145)
[2024-09-04] MEDS ORDERED: CEFAZOLIN 2 GM in Sodium Chloride 0.9% 100 ML IVPB SCH (08:00)
[2024-09-04 10:58] VITALS: BMI 19.0
[2024-09-04] MEDS ORDERED: PROPOFOL 20 ML ONE ×2 (13:17→14:23)
[2024-09-04] MEDS ORDERED: Lidocaine 2% PF 5 ML VIAL ONE (13:17)
[2024-09-04] MEDS ORDERED: Rocuronium Bromide 10 MG/ML (10ML VIAL) ONE (13:17)
[2024-09-04] MEDS ORDERED: CEFAZOLIN 2 GM VIAL ONE (14:04)
[2024-09-04] MEDS ORDERED: Lidocaine 1% PF 5 ML VIAL ONE (14:22)
[2024-09-04] MEDS ORDERED: fentaNYL 50 mcg/mL 1 mL Vial ONE ×2 (14:23→15:38)
[2024-09-04] MEDS ORDERED: Dexamethasone 4 mg/ml Vial ONE (14:53)
[2024-09-04] MEDS ORDERED: fentaNYL PF 100 MCG/2 ML SYRINGE ONE (14:57)
[2024-09-04] MEDS ORDERED: SUGAMMADEX SODIUM 200 MG/2 ML VIAL ONE ×2 (15:26→15:46)
[2024-09-04] MEDS ORDERED: Midazolam HCl 2 mg/2 ml Vial ONE (15:39)
[2024-09-04] MEDS ORDERED: Promethazine HCl 25 MG/ML VIAL IM PRN (16:08)
[2024-09-04] MEDS ORDERED: HYDROmorphone 2 MG/ML VIAL SLOW IVP PRN (16:08)
[2024-09-04] MEDS ORDERED: Ondansetron HCl/PF 4 MG/2 ML Vial IVP PRN (16:08)
[2024-09-04] MEDS: CEFAZOLIN 2 GM in Sodium Chloride 0.9% 100 ML IVPB SCH (21:52)
[2024-09-06] MEDS ORDERED: HYDROcodone/Acetaminophen 10/325 mg Tablet ONE ×2 (11:24→17:40)
[2024-09-06] MEDS ORDERED: traMADol HCl 50 MG TAB ONE (16:00)
[2024-09-06] MEDS: Ergocalciferol 1.25 MG(50,000 UNITS) CAP ONE (18:34)
[2024-09-06] MEDS: Methocarbamol 500 MG TAB ONE ×2 (18:43)
[2024-09-06] MEDS: DULoxetine 30 MG CAP ONE (18:43)
[2024-09-06] MEDS: HYDROcodone/Acetaminophen 10/325 mg Tablet ONE ×2 (18:47)
[2024-09-06] MEDS ORDERED: Acetaminophen 325 MG TAB ONE (21:15)
[2024-09-07] MEDS ORDERED: Polyethylene Glycol 3350 17 GM Packet PO PRN (07:58)
[2024-09-07] MEDS ORDERED: Non-Formulary Item 1 EACH (Oxycodone Hcl/Acetaminophen [Oxycodone-Acetaminophen 10-325] 1 PO PRN (07:58)
[2024-09-07] MEDS ORDERED: Ergocalciferol 1.25 MG(50,000 UNITS) CAP PO SCH (08:00)
[2024-09-07 08:14] LABS: #Basophils 0.03 10x3/uL (0.0-0.2); %Basophils 0.5 % (0.0-1.0); %Eosinophils 1.8 % (0.0-10.0); %Lymphocytes 13.4 % (21.0-51.0); %Monocytes 11.5 % (0.0-10.0); %Neutrophils 72.1 % (42.0-75.0); Hematocrit 24.1 % (36.0-47.0); Hemoglobin 7.8 g/dL (12.0-16.0); Mean Corpuscular HGB CONC 32.4 g/dL (32.0-36.0); Mean Corpuscular Hemoglobin 32.6 pg (27.0-31.0); Mean Corpuscular Volume 100.8 fL (78.0-98.0); Mean Platelet Volume 8.4 fL (7.4-10.4); Platelet Count 245 10x3/uL (130-400); RBC Distribution Width 16.3 % (11.5-14.5); Red Blood Cell (RBC) Count 2.39 mill/uL (4.20-5.40)
[2024-09-07] MEDS: DULoxetine 30 MG CAP ONE ×3 (08:51→20:43)
[2024-09-07] MEDS: QUEtiapine 300 MG TAB ONE ×2 (08:51→20:43)
[2024-09-07] MEDS: DULoxetine 30 MG CAP PO SCH (08:54)
[2024-09-07] MEDS: FLU (Fluad Triv) TS24-25 (65UP)/MF59C/PF 45 MCG/0.5 ML Syringe IM ONE (08:54)
[2024-09-07] MEDS: Pantoprazole DR 40 MG TAB PO SCH (08:54)
[2024-09-07] MEDS: Fludrocortisone Acetate 0.1 MG TAB PO SCH (08:54)
[2024-09-07] MEDS ORDERED: Enoxaparin 40 MG (0.4 mL) SYRINGE SC SCH (09:00)
[2024-09-07] MEDS ORDERED: Non-Formulary Item 1 EACH (Omeprazole [Omeprazole] 40 Capsule.Dr) PO SCH (09:00)
[2024-09-07 09:32] LABS: Anion Gap 11 mmol/L (10-20); BUN (Urea Nitrogen) 12 mg/dL (9.8-20.1); Calc. Creatinine Clearance 82 mL/min (70-130); Calcium 8.1 mg/dL (7.8-10.44); Carbon Dioxide 27 mmol/L (23-31); Chloride 106 mmol/L (98-107); Estimated GFR 95; Glucose 83 mg/dL (83-110); Sodium 141 mmol/L (136-145)
[2024-09-07] MEDS: Pantoprazole DR 40 MG TAB ONE (11:36)
[2024-09-07] MEDS: Fludrocortisone Acetate 0.1 MG TAB ONE (11:36)
[2024-09-07] MEDS: Ergocalciferol 1.25 MG(50,000 UNITS) CAP PO SCH (13:17)
[2024-09-07] MEDS: Potassium Chloride 20 MEQ TAB PO SCH (15:35)
[2024-09-07] MEDS: oxyCODONE/Acetaminophen 5 mg/325 mg Tablet PO PRN (15:36)
[2024-09-07] MEDS: Acetaminophen 325 MG TAB PO PRN (20:35)
[2024-09-07] MEDS: QUEtiapine 300 MG TAB PO SCH (20:35)
[2024-09-08] MEDS: HYDROcodone/Acetaminophen 10/325 mg Tablet PO PRN (06:39)
[2024-09-08] MEDS ORDERED: Electrolyte Replacement Protocol 1 EACH FS SCH (08:15)
[2024-09-08] MEDS ORDERED: Potassium Chloride 20 MEQ TAB PO SCH (08:15)
[2024-09-08] MEDS: Acetaminophen 500 MG TAB PO SCH (09:01)
[2024-09-08] MEDS: Fludrocortisone Acetate 0.1 MG TAB ONE (09:01)
[2024-09-08] MEDS: Potassium Chloride 20 MEQ TAB PO SCH (09:01)
[2024-09-08] MEDS: Pantoprazole DR 40 MG TAB ONE (09:02)
[2024-09-08] MEDS: DULoxetine 30 MG CAP ONE ×2 (09:02→20:17)
[2024-09-08 13:49] LABS: #Basophils 0.03 10x3/uL (0.0-0.2); %Basophils 0.5 % (0.0-1.0); %Eosinophils 1.9 % (0.0-10.0); Hematocrit 26.3 % (36.0-47.0); Hemoglobin 8.3 g/dL (12.0-16.0); Mean Corpuscular HGB CONC 31.6 g/dL (32.0-36.0); Mean Corpuscular Hemoglobin 32.4 pg (27.0-31.0); Mean Corpuscular Volume 102.7 fL (78.0-98.0); Mean Platelet Volume 8.4 fL (7.4-10.4); Platelet Count 304 10x3/uL (130-400); RBC Distribution Width 16.1 % (11.5-14.5); Red Blood Cell (RBC) Count 2.56 mill/uL (4.20-5.40)
[2024-09-08 14:03] LABS: Potassium 3.6 mmol/L (3.5-5.1)
[2024-09-08] MEDS: Carvedilol 3.125 MG TAB PO SCH (17:46)
[2024-09-08] MEDS: QUEtiapine 300 MG TAB ONE (20:17)
[2024-09-09] MEDS: Aspirin Chewable 81 MG TAB PO SCH (08:41)
[2024-09-09] MEDS: Potassium Chloride 20 MEQ TAB PO SCH ×2 (08:41→12:07)
[2024-09-09] MEDS: Bumetanide 1 MG TAB PO SCH (08:41)
[2024-09-09] MEDS: Pantoprazole DR 40 MG TAB ONE (08:41)
[2024-09-09] MEDS: Fludrocortisone Acetate 0.1 MG TAB ONE (08:41)
[2024-09-09] MEDS: DULoxetine 30 MG CAP ONE ×2 (08:42→20:39)
[2024-09-09 10:04] LABS: #Basophils 0.03 10x3/uL (0.0-0.2); %Basophils 0.5 % (0.0-1.0); %Eosinophils 2.6 % (0.0-10.0); %Lymphocytes 12.4 % (21.0-51.0); %Monocytes 8.4 % (0.0-10.0); %Neutrophils 75.5 % (42.0-75.0); Hematocrit 26.3 % (36.0-47.0); Hemoglobin 8.4 g/dL (12.0-16.0); Mean Corpuscular HGB CONC 31.9 g/dL (32.0-36.0); Mean Corpuscular Hemoglobin 32.3 pg (27.0-31.0); Mean Corpuscular Volume 101.2 fL (78.0-98.0); Mean Platelet Volume 8.3 fL (7.4-10.4); Platelet Count 344 10x3/uL (130-400)
[2024-09-09 10:31] LABS: Anion Gap 10 mmol/L (10-20); BUN (Urea Nitrogen) 13 mg/dL (9.8-20.1); Calc. Creatinine Clearance 73 mL/min (70-130); Calcium 8.4 mg/dL (7.8-10.44); Carbon Dioxide 28 mmol/L (23-31); Chloride 105 mmol/L (98-107); Estimated GFR 93; Glucose 126 mg/dL (83-110); Sodium 140 mmol/L (136-145)
[2024-09-09] MEDS: QUEtiapine 300 MG TAB ONE (20:39)
[2024-09-09] MEDS: Methocarbamol 500 MG TAB ONE (20:44)
[2024-09-09] MEDS: Cyclobenzaprine 10 MG TAB PO PRN (20:46)
[2024-09-09] MEDS: Cyclobenzaprine 10 MG TAB ONE (23:02)
[2024-09-10 08:39] LABS: Magnesium 1.8 mg/dL (1.6-2.6); Potassium 3.6 mmol/L (3.5-5.1)
[2024-09-10] MEDS: Pantoprazole DR 40 MG TAB ONE (08:47)
[2024-09-10] MEDS: Fludrocortisone Acetate 0.1 MG TAB ONE (08:47)
[2024-09-10] MEDS: DULoxetine 30 MG CAP ONE (09:27)
[2024-09-10 12:01] LABS: Hematocrit 25.6 % (36.0-47.0); Hemoglobin 8.7 g/dL (12.0-16.0)
[2024-09-10] MEDS: Magnesium 2 GM/50 ML(in water) 2 GM in Premix 1 BAG IVPB SCH (12:16)
[2024-09-10 14:15] LABS: Bacteria/HPF 4+ HPF (None Seen); Bilirubin Negative (Negative); Blood, Urine 1+ (Negative); CAUTI Indications for Culture Dysuria,urgency,freq; Clarity Extra Turbid (Clear); Glucose, Urine (Dipstick) Normal (Negative); Ketone, Urine Negative (Negative); Leukocyte 250 Leu/uL (Negative); Nitrite Negative (Negative); Protein, Urine (Dipstick) Negative (Neg-Trace); RBC/HPF None Seen HPF (0-3); Specific Gravity, Urine 1.014 (1.002-1.036); Squamous Epithelial 0-3 HPF (0-3)
[2024-09-10 14:19] LABS: Urine Culture Reflex Yes Yes
[2024-09-10] MEDS: Enoxaparin 40 MG (0.4 mL) SYRINGE SC SCH (21:12)
[2024-09-10] MEDS: Cyclobenzaprine 10 MG TAB ONE (22:30)
[2024-09-11] MEDS: Fludrocortisone Acetate 0.1 MG TAB ONE (08:30)
[2024-09-11] MEDS: Pantoprazole DR 40 MG TAB ONE (08:31)
[2024-09-11] MEDS: DULoxetine 30 MG CAP ONE (08:34)
[2024-09-11 17:59] VITALS: BP 123/83; TEMP 97.6
== END 2024-09-11 21:30 | DRG 481 ==
LOC: ERS 18:25 → SURG A 21:18
PROVIDERS: ADMIT Surgery; ATTEND Nurse Practitioner
PROC: 0QSB06Z Reposition Right Lower Femur with Intramedullary Internal Fixation Device, Open Approach (ICD-10-PCS; principal; 2024-09-04)
PROC: 30233N1 Transfusion of Nonautologous Red Blood Cells into Peripheral Vein, Percutaneous Approach (ICD-10-PCS; 2024-09-05)
DX: S72.401A Unspecified fracture of lower end of right femur, initial encounter for closed fracture (principal); I50.22 Chronic systolic (congestive) heart failure; W18.30XA Fall on same level, unspecified, initial encounter; Z79.899 Other long term (current) drug therapy; K21.9 Gastro-esophageal reflux disease without esophagitis; F41.9 Anxiety disorder, unspecified; Z86.73 Personal history of transient ischemic attack (TIA), and cerebral infarction without residual deficits; F32.A Depression, unspecified; Z98.890 Other specified postprocedural states; Z79.82 Long term (current) use of aspirin; Z90.710 Acquired absence of both cervix and uterus; M81.0 Age-related osteoporosis without current pathological fracture; E87.6 Hypokalemia
CPT/HCPCS: 27502; 36415; 36430; 70450; 71045; 72125; 80048; 80053; 81001; 82550; 83735; 84132; 84484; 85014; 85018; 85025; 85610; 85730; 86850; 86900; 86901; 87077; 87086; 87186; 93005; 96374; 96375; 99156; C1713; G0390; J1100; J1650; J2250; J2272; J2405; J2704; J3010; J3475; J3490; J7120; P9016

== ENCOUNTER 2025-05-28 17:46 | Emergency (ER) | payer MEDICARE, BC ==
[2025-05-28] MEDS ORDERED: oxyCODONE 5 MG TAB PO SCH ×2 (18:30→19:00)
== END 2025-05-28 21:35 | disposition home or self-care (01) ==
LOC: ERS 17:46
DX: S12.190A Other displaced fracture of second cervical vertebra, initial encounter for closed fracture (principal); I50.42 Chronic combined systolic (congestive) and diastolic (congestive) heart failure; W01.198A Fall on same level from slipping, tripping and stumbling with subsequent striking against other object, initial encounter
CPT/HCPCS: 70450; 72125

== ENCOUNTER → 2025-07-23 | Emergency (ER) | payer MEDICARE, BC ==
[~2025-07-23] MED LIST changes: +Bumetanide 1 MG/4 ML VIAL IVP SCH; +Carvedilol 6.25 MG TAB ONE; +Dextrose 50% Abboject 50 ML SYRINGE ONE; -Iopamidol 370 76% 100 ML VIAL ONE; +Iopamidol-370 76% 500 ML MDV (1 ML CHARGE) ONE; +Prochlorperazine 10 MG/2 ML VIAL ONE
[2025-07-23 13:16] LABS: #Basophils 0.07 10x3/uL (0.0-0.2); #Eosinophils Less than 0.03 10x3/uL (0.0-0.7); #Monocytes 0.42 10x3/uL (0.11-0.59); #Neutrophils 4.58 10x3/uL (1.40-6.50); %Basophils 1.1 % (0.0-1.0); %Eosinophils 0.3 % (0.0-10.0); %Lymphocytes 21.6 % (21.0-51.0); %Monocytes 6.4 % (0.0-10.0); %Neutrophils 70.3 % (42.0-75.0); Hematocrit 42.0 % (36.0-47.0); Hemoglobin 14.2 g/dL (12.0-16.0); Mean Corpuscular Hemoglobin 34.9 pg (27.0-31.0); Mean Corpuscular Volume 103.2 fL (78.0-98.0); Platelet Count 322 10x3/uL (130-400); Red Blood Cell (RBC) Count 4.07 mill/uL (4.20-5.40); White Blood Cell (WBC) Count 6.52 10x3/uL (4.8-10.8)
[2025-07-23 15:30] LABS: ALT (SGPT) 19 U/L (Less than 34); AST (SGOT) 41 U/L (11-34); Albumin 2.2 g/dL (3.1-4.5); Alkaline Phosphatase 148 U/L (40-110); Anion Gap 25 mmol/L (10-20); BUN (Urea Nitrogen) 10 mg/dL (9.8-20.1); Bilirubin, Total 1.0 mg/dL (0.3-1.2); Calc. Creatinine Clearance 0 mL/min (70-130); Calcium 7.8 mg/dL (7.8-10.44); Carbon Dioxide 25 mmol/L (23-31); Chloride 92 mmol/L (98-107); Globulin 2.4 g/dL (2.4-3.5); Glucose 62 mg/dL (83-110); Potassium 3.6 mmol/L (3.5-5.1); Sodium 138 mmol/L (136-145)
[2025-07-23 16:23] LABS: Bacteria/HPF None Seen HPF (None Seen); CAUTI Indications for Culture Dysuria,urgency,freq; Glucose, Urine (Dipstick) Normal (Negative); Leukocyte Negative Leu/uL (Negative); Protein, Urine (Dipstick) Negative (Neg-Trace); RBC/HPF 0-3 HPF (0-3); Specific Gravity, Urine 1.012 (1.002-1.036); WBC/HPF 0-3 HPF (0-3)
[2025-07-23 16:29] LABS: Urine Culture Reflex No No
== END ==
LOC: ERS 12:33
DX: R53.1 Weakness (principal); I48.91 Unspecified atrial fibrillation; R60.9 Edema, unspecified; I50.9 Heart failure, unspecified; K21.9 Gastro-esophageal reflux disease without esophagitis; D64.9 Anemia, unspecified; N39.0 Urinary tract infection, site not specified; Z79.82 Long term (current) use of aspirin; Z79.899 Other long term (current) drug therapy
CPT/HCPCS: 71045; 71275; 80053; 81001; 82962; 83880; 84484; 85025; 93005; 96374; 96375; 99285; J0780; J3490; J7999; 36416; Q9967

== ENCOUNTER 2025-09-07 11:54 | Emergency (ER) | payer MEDICARE, BC ==
[2025-09-07 12:40] LABS: #Basophils 0.08 10x3/uL (0.0-0.2); #Eosinophils 0.15 10x3/uL (0.0-0.7); #Monocytes 0.40 10x3/uL (0.11-0.59); #Neutrophils 5.88 10x3/uL (1.40-6.50); %Basophils 1.0 % (0.0-1.0); %Eosinophils 1.9 % (0.0-10.0); %Lymphocytes 16.4 % (21.0-51.0); %Monocytes 5.1 % (0.0-10.0); %Neutrophils 75.2 % (42.0-75.0); Hematocrit 35.6 % (36.0-47.0); Hemoglobin 10.9 g/dL (12.0-16.0); Mean Corpuscular Hemoglobin 33.9 pg (27.0-31.0); Mean Corpuscular Volume 110.6 fL (78.0-98.0); Platelet Count 413 10x3/uL (130-400); Red Blood Cell (RBC) Count 3.22 mill/uL (4.20-5.40); White Blood Cell (WBC) Count 7.82 10x3/uL (4.8-10.8)
[2025-09-07 12:54] LABS: INR-International Normal Ratio 1.5; PTT 34.9 sec (22.9-36.1); Prothrombin Time 17.8 sec (12.0-14.7)
[2025-09-07 12:58] LABS: ALT (SGPT) 10 U/L (Less than 34); AST (SGOT) 34 U/L (11-34); Albumin 1.6 g/dL (3.1-4.5); Alkaline Phosphatase 132 U/L (40-110); Anion Gap 12 mmol/L (10-20); BUN (Urea Nitrogen) 15 mg/dL (9.8-20.1); Bilirubin, Total 0.7 mg/dL (0.3-1.2); Calc. Creatinine Clearance 0 mL/min (70-130); Calcium 7.7 mg/dL (7.8-10.44); Carbon Dioxide 22 mmol/L (23-31); Chloride 111 mmol/L (98-107); Globulin 2.5 g/dL (2.4-3.5); Glucose 91 mg/dL (83-110); Potassium 3.2 mmol/L (3.5-5.1); Sodium 142 mmol/L (136-145)
[2025-09-07 13:07] LABS: Anisocytosis SLIGHT = 6-15 cells HPF (0-5); Burr Cells SLIGHT = 2-5 cells HPF (0-1); Macrocytosis MODERATE=16-30 cells HPF (0-5); Platelet Adequacy Comment Platelets Increased; Poikilocytosis SLIGHT = 6-15 cells HPF (0-5)
[2025-09-07] MEDS ORDERED: Furosemide 40 MG (4 mL) VIAL ONE (13:11)
[2025-09-07] MEDS ORDERED: CALCIUM GLUC 1 GM/NS 50 ML IV Bag ONE (13:11)
[2025-09-07 14:16] LABS: Bacteria/HPF None Seen HPF (None Seen); CAUTI Indications for Culture Alt mental st,lethar; Glucose, Urine (Dipstick) Normal (Negative); Leukocyte 75 Leu/uL (Negative); Protein, Urine (Dipstick) Negative (Neg-Trace); RBC/HPF 0-3 HPF (0-3); Specific Gravity, Urine 1.014 (1.002-1.036); WBC/HPF 0-3 HPF (0-3)
[2025-09-07 14:18] LABS: Urine Culture Reflex No No
== END 2025-09-07 23:32 ==
LOC: ERS 11:54
DX: R60.9 Edema, unspecified (principal); M79.81 Nontraumatic hematoma of soft tissue; K21.9 Gastro-esophageal reflux disease without esophagitis; I50.42 Chronic combined systolic (congestive) and diastolic (congestive) heart failure; Z79.899 Other long term (current) drug therapy
CPT/HCPCS: 71045; 80053; 81001; 83880; 84484; 85025; 85610; 85730; 93005; 94760; J0613; J1940; 96365; 96375

== ENCOUNTER 2025-09-30 12:36 | Inpatient (IN) | payer MEDICARE, BC ==
[2025-09-30] MEDS ORDERED: Iopamidol-370 76% 500 ML MDV (1 ML CHARGE) ONE (13:23)
[2025-09-30 14:28] LABS: #Basophils 0.03 10x3/uL (0.0-0.2); #Eosinophils Less than 0.03 10x3/uL (0.0-0.7); #Monocytes 0.40 10x3/uL (0.11-0.59); #Neutrophils 7.99 10x3/uL (1.40-6.50); %Basophils 0.3 % (0.0-1.0); %Eosinophils 0.1 % (0.0-10.0); %Lymphocytes 17.1 % (21.0-51.0); %Monocytes 3.9 % (0.0-10.0); %Neutrophils 78.3 % (42.0-75.0); Hematocrit 36.6 % (36.0-47.0); Hemoglobin 12.2 g/dL (12.0-16.0); Mean Corpuscular Hemoglobin 34.5 pg (27.0-31.0); Mean Corpuscular Volume 103.4 fL (78.0-98.0); Platelet Count 416 10x3/uL (130-400); Red Blood Cell (RBC) Count 3.54 mill/uL (4.20-5.40); White Blood Cell (WBC) Count 10.21 10x3/uL (4.8-10.8)
[2025-09-30 14:54] LABS: ALT (SGPT) 15 U/L (Less than 34); AST (SGOT) 49 U/L (11-34); Albumin 1.5 g/dL (3.1-4.5); Alkaline Phosphatase 171 U/L (40-110); Anion Gap 18 mmol/L (10-20); BUN (Urea Nitrogen) 17 mg/dL (9.8-20.1); Bilirubin, Total 2.3 mg/dL (0.3-1.2); Calc. Creatinine Clearance 0 mL/min (70-130); Calcium 7.3 mg/dL (7.8-10.44); Carbon Dioxide 18 mmol/L (23-31); Chloride 106 mmol/L (98-107); Globulin 2.7 g/dL (2.4-3.5); Glucose 90 mg/dL (83-110); Magnesium 1.6 mg/dL (1.6-2.6); Potassium 3.6 mmol/L (3.5-5.1); Sodium 138 mmol/L (136-145)
[2025-09-30] MEDS ORDERED: Acetaminophen 500 MG TAB ONE (17:20)
[2025-09-30 19:54] VITALS: BMI 22.6
[2025-09-30] MEDS ORDERED: Senokot S 8.6-50 MG TAB PO PRN (20:31)
[2025-09-30] MEDS ORDERED: Furosemide 40 MG (4 mL) VIAL SLOW IVP SCH (20:45)
[2025-09-30] MEDS: QUEtiapine 300 MG TAB PO SCH (21:09)
[2025-09-30] MEDS: Furosemide 40 MG (4 mL) VIAL SLOW IVP SCH (21:09)
[2025-09-30] MEDS: Magnesium 2 GM/50 ML(in water) 2 GM in Premix 1 BAG IVPB SCH (21:09)
[2025-09-30] MEDS: Albumin 25% 25 GM (100 mL) BOT IVPB SCH (21:09)
[2025-09-30] MEDS: oxyCODONE/Acetaminophen 5 mg/325 mg Tablet PO PRN (21:10)
[2025-09-30] MEDS: Carvedilol 3.125 MG TAB PO SCH (21:10)
[2025-09-30 23:33] LABS: Influenza A by NAA Not Detected (NotDetected); Influenza B by NAA Not Detected (NotDetected); RSV by NAA Not Detected (NotDetected); SARS-CoV-2 NAA Rapid Test Not Detected (NotDetected)
[2025-10-01 04:52] LABS: Anion Gap 16 mmol/L (10-20); BUN (Urea Nitrogen) 15 mg/dL (9.8-20.1); Calc. Creatinine Clearance 75 mL/min (70-130); Calcium 7.6 mg/dL (7.8-10.44); Carbon Dioxide 21 mmol/L (23-31); Chloride 104 mmol/L (98-107); Glucose 123 mg/dL (83-110); Potassium 2.8 mmol/L (3.5-5.1); Sodium 138 mmol/L (136-145)
[2025-10-01] MEDS: Furosemide 40 MG (4 mL) VIAL SLOW IVP SCH ×2 (05:37→14:43)
[2025-10-01 05:49] LABS: #Basophils Less than 0.03 10x3/uL (0.0-0.2); #Eosinophils 0.08 10x3/uL (0.0-0.7); #Monocytes 0.35 10x3/uL (0.11-0.59); #Neutrophils 6.49 10x3/uL (1.40-6.50); %Basophils 0.2 % (0.0-1.0); %Eosinophils 1.0 % (0.0-10.0); %Lymphocytes 16.5 % (21.0-51.0); %Monocytes 4.2 % (0.0-10.0); %Neutrophils 77.9 % (42.0-75.0); Hematocrit 30.2 % (36.0-47.0); Hemoglobin 9.3 g/dL (12.0-16.0); Mean Corpuscular Hemoglobin 33.1 pg (27.0-31.0); Mean Corpuscular Volume 107.5 fL (78.0-98.0); Platelet Count 250 10x3/uL (130-400); Red Blood Cell (RBC) Count 2.81 mill/uL (4.20-5.40); White Blood Cell (WBC) Count 8.34 10x3/uL (4.8-10.8)
[2025-10-01] MEDS ORDERED: Furosemide 40 MG (4 mL) VIAL SLOW IVP SCH (06:00)
[2025-10-01 08:57] LABS: Magnesium 1.8 mg/dL (1.6-2.6)
[2025-10-01] MEDS ORDERED: PHOS-NAK 1 PKT PACK PO PRN (09:00)
[2025-10-01] MEDS: Electrolyte Replacement Protocol 1 EACH FS ONE (09:24)
[2025-10-01] MEDS: Albumin 25% 25 GM (100 mL) BOT IVPB SCH (09:26)
[2025-10-01] MEDS: Pantoprazole 40 MG DR.TAB PO SCH (09:27)
[2025-10-01] MEDS: Magnesium 2 GM/50 ML(in water) 2 GM in Premix 1 BAG IVPB SCH (09:31)
[2025-10-01] MEDS: Enoxaparin 40 MG (0.4 mL) SYRINGE SC SCH (09:32)
[2025-10-02] MEDS: oxyCODONE/Acetaminophen 5 mg/325 mg Tablet PO PRN (00:59)
[2025-10-02 04:47] LABS: #Basophils Less than 0.03 10x3/uL (0.0-0.2); #Eosinophils 0.10 10x3/uL (0.0-0.7); #Monocytes 0.19 10x3/uL (0.11-0.59); #Neutrophils 4.49 10x3/uL (1.40-6.50); %Basophils 0.2 % (0.0-1.0); %Eosinophils 1.7 % (0.0-10.0); %Lymphocytes 19.8 % (21.0-51.0); %Monocytes 3.2 % (0.0-10.0); %Neutrophils 74.8 % (42.0-75.0); Hematocrit 23.0 % (36.0-47.0); Hemoglobin 7.4 g/dL (12.0-16.0); Mean Corpuscular Hemoglobin 33.3 pg (27.0-31.0); Mean Corpuscular Volume 103.6 fL (78.0-98.0); Platelet Count 231 10x3/uL (130-400); Red Blood Cell (RBC) Count 2.22 mill/uL (4.20-5.40); White Blood Cell (WBC) Count 6.00 10x3/uL (4.8-10.8)
[2025-10-02 05:03] LABS: ALT (SGPT) 9 U/L (Less than 34); AST (SGOT) 37 U/L (11-34); Albumin 2.8 g/dL (3.1-4.5); Alkaline Phosphatase 93 U/L (40-110); Bilirubin, Direct 2.1 mg/dL (0.1-0.3); Bilirubin, Total 3.2 mg/dL (0.3-1.2)
[2025-10-02 05:04] LABS: Anion Gap 16 mmol/L (10-20); BUN (Urea Nitrogen) 10 mg/dL (9.8-20.1); Calc. Creatinine Clearance 92 mL/min (70-130); Calcium 7.4 mg/dL (7.8-10.44); Carbon Dioxide 32 mmol/L (23-31); Chloride 97 mmol/L (98-107); Glucose 85 mg/dL (83-110); Potassium 2.0 mmol/L (3.5-5.1); Sodium 143 mmol/L (136-145)
[2025-10-02 06:08] LABS: Magnesium 1.6 mg/dL (1.6-2.6)
[2025-10-02] MEDS: Potassium Chloride 20 MEQ in Premix 1 BAG IVPB PRN (06:29)
[2025-10-02] MEDS: Albumin 25% 25 GM (100 mL) BOT IVPB SCH (12:26)
[2025-10-02 16:25] LABS: Hematocrit 23.4 % (36.0-47.0); Hemoglobin 7.7 g/dL (12.0-16.0)
[2025-10-02 16:41] LABS: Potassium 3.0 mmol/L (3.5-5.1)
[2025-10-03 05:15] LABS: #Basophils Less than 0.03 10x3/uL (0.0-0.2); #Eosinophils 0.06 10x3/uL (0.0-0.7); #Monocytes 0.21 10x3/uL (0.11-0.59); #Neutrophils 4.02 10x3/uL (1.40-6.50); %Basophils 0.2 % (0.0-1.0); %Eosinophils 1.1 % (0.0-10.0); %Lymphocytes 20.7 % (21.0-51.0); %Monocytes 3.9 % (0.0-10.0); %Neutrophils 73.7 % (42.0-75.0); Hematocrit 22.4 % (36.0-47.0); Hemoglobin 7.3 g/dL (12.0-16.0); Mean Corpuscular Hemoglobin 33.3 pg (27.0-31.0); Mean Corpuscular Volume 102.3 fL (78.0-98.0); Platelet Count 218 10x3/uL (130-400); Red Blood Cell (RBC) Count 2.19 mill/uL (4.20-5.40); White Blood Cell (WBC) Count 5.45 10x3/uL (4.8-10.8)
[2025-10-03 05:31] LABS: Anion Gap 16 mmol/L (10-20); BUN (Urea Nitrogen) 7 mg/dL (9.8-20.1); Calc. Creatinine Clearance 73 mL/min (70-130); Calcium 8.0 mg/dL (7.8-10.44); Carbon Dioxide 33 mmol/L (23-31); Chloride 97 mmol/L (98-107); Glucose 68 mg/dL (83-110); Potassium 2.8 mmol/L (3.5-5.1); Sodium 143 mmol/L (136-145)
[2025-10-03] MEDS: Melatonin 3 MG TAB PO PRN (23:46)
[2025-10-04] MEDS: Artificial Tear Ophth Sol 15 ML BOT EA EYE PRN (04:03)
[2025-10-04] MEDS: Albumin 25% 25 GM (100 mL) BOT IVPB SCH ×2 (04:52→23:09)
[2025-10-04] MEDS: Acetaminophen 325 MG TAB PO PRN (04:52)
[2025-10-04 05:53] LABS: Ferritin 184.2 ng/mL (10-291); Vitamin B12 605.0 pg/mL (211-911)
[2025-10-04] MEDS: FLU (Fluad Triv) 25-26 (65UP)PF 45 MCG/0.5 ML Syringe IM ONE (08:32)
[2025-10-04] MEDS: PNEUMOC 20-VAL CONJ-DIP CRM/PF 0.5 ML SYRINGE IM ONE (08:32)
[2025-10-04 09:05] LABS: #Basophils Less than 0.03 10x3/uL (0.0-0.2); #Eosinophils 0.07 10x3/uL (0.0-0.7); #Monocytes 0.27 10x3/uL (0.11-0.59); #Neutrophils 3.96 10x3/uL (1.40-6.50); %Basophils 0.4 % (0.0-1.0); %Eosinophils 1.3 % (0.0-10.0); %Lymphocytes 21.8 % (21.0-51.0); %Monocytes 4.9 % (0.0-10.0); %Neutrophils 71.2 % (42.0-75.0); Hematocrit 23.4 % (36.0-47.0); Hemoglobin 7.3 g/dL (12.0-16.0); Mean Corpuscular Hemoglobin 33.5 pg (27.0-31.0); Mean Corpuscular Volume 107.3 fL (78.0-98.0); Platelet Count 212 10x3/uL (130-400); Red Blood Cell (RBC) Count 2.18 mill/uL (4.20-5.40); White Blood Cell (WBC) Count 5.55 10x3/uL (4.8-10.8)
[2025-10-04 09:23] LABS: Anion Gap 15 mmol/L (10-20); BUN (Urea Nitrogen) 7 mg/dL (9.8-20.1); Calc. Creatinine Clearance 87 mL/min (70-130); Calcium 8.3 mg/dL (7.8-10.44); Carbon Dioxide 28 mmol/L (23-31); Chloride 99 mmol/L (98-107); Glucose 75 mg/dL (83-110); Potassium 2.9 mmol/L (3.5-5.1); Sodium 139 mmol/L (136-145)
[2025-10-04] MEDS: QUEtiapine 100 MG TAB PO SCH (21:46)
[2025-10-05 04:12] LABS: #Basophils 0.03 10x3/uL (0.0-0.2); #Eosinophils 0.10 10x3/uL (0.0-0.7); #Monocytes 0.32 10x3/uL (0.11-0.59); #Neutrophils 4.51 10x3/uL (1.40-6.50); %Basophils 0.5 % (0.0-1.0); %Eosinophils 1.5 % (0.0-10.0); %Lymphocytes 24.3 % (21.0-51.0); %Monocytes 4.9 % (0.0-10.0); %Neutrophils 68.5 % (42.0-75.0); Hematocrit 24.4 % (36.0-47.0); Hemoglobin 7.8 g/dL (12.0-16.0); Mean Corpuscular Hemoglobin 34.4 pg (27.0-31.0); Mean Corpuscular Volume 107.5 fL (78.0-98.0); Platelet Count 202 10x3/uL (130-400); Red Blood Cell (RBC) Count 2.27 mill/uL (4.20-5.40); White Blood Cell (WBC) Count 6.58 10x3/uL (4.8-10.8)
[2025-10-05 04:30] LABS: Anion Gap 14 mmol/L (10-20); BUN (Urea Nitrogen) 6 mg/dL (9.8-20.1); Calc. Creatinine Clearance 78 mL/min (70-130); Calcium 8.9 mg/dL (7.8-10.44); Carbon Dioxide 27 mmol/L (23-31); Chloride 103 mmol/L (98-107); Glucose 98 mg/dL (83-110); Potassium 3.9 mmol/L (3.5-5.1); Sodium 140 mmol/L (136-145)
[2025-10-05 14:29] LABS: #Basophils 0.03 10x3/uL (0.0-0.2); #Eosinophils 0.03 10x3/uL (0.0-0.7); #Monocytes 0.34 10x3/uL (0.11-0.59); #Neutrophils 6.26 10x3/uL (1.40-6.50); %Basophils 0.4 % (0.0-1.0); %Eosinophils 0.4 % (0.0-10.0); %Lymphocytes 16.5 % (21.0-51.0); %Monocytes 4.3 % (0.0-10.0); %Neutrophils 78.3 % (42.0-75.0); Hematocrit 23.2 % (36.0-47.0); Hemoglobin 7.1 g/dL (12.0-16.0); Mean Corpuscular Hemoglobin 34.0 pg (27.0-31.0); Mean Corpuscular Volume 111.0 fL (78.0-98.0); Platelet Count 214 10x3/uL (130-400); Red Blood Cell (RBC) Count 2.09 mill/uL (4.20-5.40); White Blood Cell (WBC) Count 7.99 10x3/uL (4.8-10.8)
[2025-10-05 15:21] LABS: Anisocytosis SLIGHT = 6-15 cells HPF (0-5); Macrocytosis MODERATE=16-30 cells HPF (0-5); Ovalocytes SLIGHT = 2-5 cells HPF (0-1); Platelet Adequacy Comment Platelets Normal; Stomatocytes SLIGHT = 2-5 cells HPF (0-1)
[2025-10-06] MEDS: Albumin 25% 25 GM (100 mL) BOT IVPB SCH (00:30)
[2025-10-06 00:45] LABS: Hematocrit 25.8 % (36.0-47.0); Hemoglobin 8.8 g/dL (12.0-16.0)
[2025-10-06 04:21] LABS: Hematocrit 23.5 % (36.0-47.0); Hemoglobin 7.6 g/dL (12.0-16.0); Mean Corpuscular Hemoglobin 32.9 pg (27.0-31.0); Mean Corpuscular Volume 101.7 fL (78.0-98.0); Platelet Count 201 10x3/uL (130-400); Red Blood Cell (RBC) Count 2.31 mill/uL (4.20-5.40); White Blood Cell (WBC) Count 7.19 10x3/uL (4.8-10.8)
[2025-10-06 04:49] LABS: ALT (SGPT) 10 U/L (Less than 34); AST (SGOT) 28 U/L (11-34); Albumin 3.5 g/dL (3.1-4.5); Alkaline Phosphatase 76 U/L (40-110); Anion Gap 13 mmol/L (10-20); BUN (Urea Nitrogen) 6 mg/dL (9.8-20.1); Bilirubin, Total 3.3 mg/dL (0.3-1.2); Calc. Creatinine Clearance 85 mL/min (70-130); Calcium 8.6 mg/dL (7.8-10.44); Carbon Dioxide 25 mmol/L (23-31); Chloride 106 mmol/L (98-107); Globulin 1.0 g/dL (2.4-3.5); Glucose 77 mg/dL (83-110); Magnesium 1.4 mg/dL (1.6-2.6); Potassium 3.6 mmol/L (3.5-5.1); Sodium 140 mmol/L (136-145)
[2025-10-06] MEDS: Magnesium Sulfate In Water 4 GM in Premix 1 BAG IVPB PRN (09:23)
[2025-10-07 04:43] LABS: Magnesium 2.2 mg/dL (1.6-2.6)
[2025-10-07 09:04] LABS: Hematocrit 28.9 % (36.0-47.0); Hemoglobin 9.1 g/dL (12.0-16.0); Mean Corpuscular Hemoglobin 33.2 pg (27.0-31.0); Mean Corpuscular Volume 105.5 fL (78.0-98.0); Platelet Count 219 10x3/uL (130-400); Red Blood Cell (RBC) Count 2.74 mill/uL (4.20-5.40); White Blood Cell (WBC) Count 7.35 10x3/uL (4.8-10.8)
[2025-10-07 09:19] LABS: Anion Gap 13 mmol/L (10-20); BUN (Urea Nitrogen) 7 mg/dL (9.8-20.1); Calc. Creatinine Clearance 91 mL/min (70-130); Calcium 8.5 mg/dL (7.8-10.44); Carbon Dioxide 24 mmol/L (23-31); Chloride 109 mmol/L (98-107); Glucose 67 mg/dL (83-110); Potassium 3.5 mmol/L (3.5-5.1); Sodium 142 mmol/L (136-145)
[2025-10-08 04:30] LABS: Hematocrit 27.7 % (36.0-47.0); Hemoglobin 8.7 g/dL (12.0-16.0); Mean Corpuscular Hemoglobin 33.5 pg (27.0-31.0); Mean Corpuscular Volume 106.5 fL (78.0-98.0); Platelet Count 196 10x3/uL (130-400); Red Blood Cell (RBC) Count 2.60 mill/uL (4.20-5.40); White Blood Cell (WBC) Count 6.06 10x3/uL (4.8-10.8)
[2025-10-08 04:52] LABS: Anion Gap 10 mmol/L (10-20); BUN (Urea Nitrogen) 9 mg/dL (9.8-20.1); Calc. Creatinine Clearance 93 mL/min (70-130); Calcium 8.5 mg/dL (7.8-10.44); Carbon Dioxide 24 mmol/L (23-31); Chloride 112 mmol/L (98-107); Glucose 89 mg/dL (83-110); Potassium 4.0 mmol/L (3.5-5.1); Sodium 142 mmol/L (136-145)
[2025-10-08 16:19] VITALS: BMI 18.2
[2025-10-09 13:18] VITALS: TEMP 98
[2025-10-09 16:25] VITALS: BP 122/84
== END 2025-10-09 17:13 | DRG 291 ==
LOC: ERS 12:36 → ERHOLD 17:07 → 2NO 19:33 → CCU 10-01 09:58 → PCU 10-03 11:19
PROVIDERS: ADMIT Internal Medicine; ATTEND Internal Medicine
PROC: 30233J1 Transfusion of Nonautologous Serum Albumin into Peripheral Vein, Percutaneous Approach (ICD-10-PCS; 2025-09-30)
PROC: 3E02340 Introduction of Influenza Vaccine into Muscle, Percutaneous Approach (ICD-10-PCS; 2025-10-01)
PROC: 3E0234Z Introduction of Serum, Toxoid and Vaccine into Muscle, Percutaneous Approach (ICD-10-PCS; 2025-10-01)
PROC: 05HY33Z Insertion of Infusion Device into Upper Vein, Percutaneous Approach (ICD-10-PCS; 2025-10-02)
PROC: 30233N1 Transfusion of Nonautologous Red Blood Cells into Peripheral Vein, Percutaneous Approach (ICD-10-PCS; principal; 2025-10-05)
DX: I50.43 Acute on chronic combined systolic (congestive) and diastolic (congestive) heart failure (principal); R57.0 Cardiogenic shock; R64 Cachexia; Z68.1 Body mass index [BMI] 19.9 or less, adult; I42.8 Other cardiomyopathies; E44.0 Moderate protein-calorie malnutrition; Z66 Do not resuscitate; K21.9 Gastro-esophageal reflux disease without esophagitis; D51.0 Vitamin B12 deficiency anemia due to intrinsic factor deficiency; G47.00 Insomnia, unspecified; M47.816 Spondylosis without myelopathy or radiculopathy, lumbar region; E55.9 Vitamin D deficiency, unspecified; R05.3 Chronic cough; I73.9 Peripheral vascular disease, unspecified; I95.89 Other hypotension; F41.9 Anxiety disorder, unspecified; F32.A Depression, unspecified; E87.6 Hypokalemia; E83.42 Hypomagnesemia; E88.09 Other disorders of plasma-protein metabolism, not elsewhere classified; G47.33 Obstructive sleep apnea (adult) (pediatric); K76.0 Fatty (change of) liver, not elsewhere classified; R29.6 Repeated falls; Z96.641 Presence of right artificial hip joint; Z87.440 Personal history of urinary (tract) infections; Z98.84 Bariatric surgery status; Z98.890 Other specified postprocedural states; Z79.82 Long term (current) use of aspirin; Z79.899 Other long term (current) drug therapy; Z23 Encounter for immunization
CPT/HCPCS: 0439T; 36415; 36416; 36430; 70450; 71045; 71275; 72170; 76705; 80048; 80053; 80076; 82274; 82533; 82607; 82728; 83540; 83605; 83735; 83880; 84100; 84443; 84484; 85025; 85027; 86850; 86900; 86901; 87040; 87077; 87637; 93005; 93010; 96374; 96375; 97139; J1650; J1940; J2916; J3010; J3475; J3480; J7050; J7120; P9016; P9047; Q9957; Q9967